=== PATIENT | female | born 1935 | race Caucasian/White ===

== ENCOUNTER 2017-12-03 21:14 | Inpatient (IN) | payer OTHER ==
--- NOTE | 2017-12-03 22:36 | PDOC ---
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 Patient sat up in bed this evening and felt as if the room was spinning. Patient denies any associated chest pain, shortness of breath, palptiations, visual or mental status changes. Patient called for her daughter and daughter called 911 with a concern patient might be having a repeat CVA. Patient's vertigo resolved en route to the hospital and patient now has no active medical complaints. Patient denies fevers/chills, abdominal pain, nausea/vomiting, diarrhea/ constipation, recent travel or sick contacts NKDA Surgical: denies Social: denies nicotine, denies alcohol, denies recreational drugs PMD: Dr. Yuan Past History - Past Medical History Allergies/Adverse Reactions: Allergies Allergy/AdvReac Type Severity Reaction Status Date / Time No Known Allergies Allergy Verified 12/03/17 21:33 Home Medications: Ambulatory Orders Alendronate Na [Fosamax] 70 mg PO Q7D 12/03/17 Amlodipine Besylate 5 mg PO DAILY 12/03/17 Aspirin [ASA -] 81 mg PO DAILY 12/03/17 Atorvastatin Calcium 40 mg PO DAILY 12/03/17 Cetirizine HCl [Zyrtec -] 10 mg PO HS 12/03/17 Citalopram Hydrobromide [Celexa -] 20 mg PO DAILY 12/03/17 Digoxin [Lanoxin -] 0.125 mg PO DAILY 12/03/17 Doxepin HCl [Silenor] 6 mg PO PRN 12/03/17 Ergocalciferol [Drisdol Oral Solution -] 5,000 units PO DAILY 12/03/17 Ferrous Sulfate 325 mg PO DAILY 12/03/17 Gabapentin 300 mg PO BID 12/03/17 Levothyroxine [Synthroid -] 75 mcg PO DAILY 12/03/17 Losartan/Hydrochlorothiazide [Losartan-Hctz 100-25 mg Tab] 1 each PO DAILY 12/03 Magnesium Oxide [Magox 400] 400 mg PO DAILY 12/03/17 Metoprolol Succinate 100 mg PO DAILY 12/03/17 Warfarin Sodium [Coumadin] 0 mg PO ASDIR 12/03/17 Anemia: No Asthma: No Cancer: No Cardiac Disorders: Yes CVA: Yes (01/2015) COPD: No Dementia: No Diabetes: No GI Disorders: No Disorders: No HTN: Yes Hypercholesterolemia: Yes Liver Disease: No Seizures: No Thyroid Disease: Yes - Surgical History Abdominal Surgery: No Appendectomy: No Cardiac Surgery: No Cholecystectomy: No Lung Surgery: No Neurologic Surgery: No Orthopedic Surgery: No - Suicide/Smoking/Psychosocial Hx Smoking History: Never smoked Have you smoked in the past 12 months: No Information on smoking cessation initiated: No Hx Alcohol Use: No Drug/Substance Use Hx: No Substance Use Type: None Hx Substance Use Treatment: No Review of Systems - Review of Systems Constitutional: No: Chills, Fever HEENTM: No: Recent change in vision Respiratory: No: Cough, Shortness of Breath Cardiac (ROS): No: Chest Pain, Lightheadedness, Palpitations, Syncope ABD/GI: No: Constipated, Diarrhea, Nausea, Vomiting : No: Burning, Dysuria *Physical Exam - Vital Signs Last Vital Signs Temp Pulse Resp BP Pulse Ox 97 F L 72 18 171/68 96 12/03/17 21:14 12/03/17 21:14 12/03/17 21:14 12/03/17 21:14 12/03/17 21:14 - Physical Exam Comments: 12/03/17 22:58 GENERAL: Awake, alert, and fully oriented, in no acute distress HEAD: No signs of trauma EYES: PERRLA, EOMI, sclera anicteric, conjunctiva clear ENT: Auricles normal inspection, hearing grossly normal, nares patent, oropharynx clear without exudates. Moist mucosa NECK: Nontender, no stepoffs, Normal ROM, supple, no lymphadenopathy, JVD, or masses LUNGS: Breath sounds equal, clear to auscultation bilaterally. No wheezes, and no crackles HEART: Regular rate and rhythm, normal S1 and S2, no murmurs, rubs or gallops ABDOMEN: Soft, nontender, normoactive bowel sounds. No guarding, no rebound. No masses EXTREMITIES: Normal range of motion, no edema. No clubbing or cyanosis. No cords, erythema, or tenderness NEUROLOGICAL: Slurred speech,Cranial nerves II through XII intact. 5/5 strength and sensation in all extremities, SKIN: Warm, Dry, normal turgor, no rashes or lesions noted. ED Treatment Course - LABORATORY CBC & Chemistry Diagram: 12/04/17 05:00 12/04/17 05:00 Medical Decision Making - Medical Decision Making 12/03/17 23:00 82 year old female presents with acute onset of vertigo. DDx includes CVA/TIA, r/o ACS, Electrolyte derangement, Anemia. Will obtain CT Head + CBC/CMP as well as UA. Reassess. 12/03/17 23:05 EKG shows NSR HR 79, normal intervals, normal axis, no TWI, no KIARA/STD good R wave progression V1-V6. Non-ischemic ECG. 12/03/17 23:36 CBC shows mild leukocytosis (likely reactive). CMP, UA pending. Patient @ CT scan. 12/04/17 00:00 Patient signed out to Dr. Iqbal (Resident) and Dr. Carter (Attending) *DC/Admit/Observation/Transfer Diagnosis at time of Disposition: Dizziness - Discharge Dispostion Condition at time of disposition: Fair Admit: Yes - Referrals - Patient Instructions - Post Discharge Activity
[2017-12-03 23:33] LABS: BASO % 1.1 % (0-2.0); EOS % 4.8 % (0-4.5); HEMATOCRIT 37.3 % (32.4-45.2); HEMOGLOBIN 12.4 GM/dL (10.7-15.3); LYMPH % 19.8 % (8-40); MCH 27.2 pg (25.7-33.7); MCHC 33.2 g/dl (32.0-36.0); MONO % 7.5 % (3.8-10.2); NEUT % 66.8 % (42.8-82.8); PLATELET COUNT 226 K/MM3 (134-434); RBC 4.55 M/mm3 (3.60-5.2); RDW 18.1 % (11.6-15.6)
[2017-12-03 23:36] LABS: URINE APPEARANCE CLEAR; URINE BILIRUBIN NEGATIVE (<2.0 mg/dL); URINE BLOOD 2+ (NEGATIVE); URINE COLOR COLORLESS; URINE GLUCOSE (UA) NEGATIVE (NEGATIVE); URINE KETONE NEGATIVE (NEGATIVE); URINE LEUK ESTERASE NEGATIVE (NEGATIVE); URINE NITRITE NEGATIVE (NEGATIVE); URINE PROTEIN NEGATIVE (NEGATIVE); URINE UROBILINOGEN NEGATIVE mg/dL (0.2-1.0)
[2017-12-03 23:46] LABS: INR 2.3 (0.82-1.09)
[2017-12-03 23:49] LABS: ACTIVATED PTT 44.2 SECONDS (26.9-34.4)
[2017-12-04 00:01] LABS: ALBUMIN 3.3 g/dl (3.4-5.0); ANION GAP 10 (8-16); BILIRUBIN,TOTAL 0.3 mg/dL (0.2-1.0); BLOOD UREA NITROGEN 24 mg/dL (7-18); CALCIUM 9.6 mg/dL (8.5-10.1); CHLORIDE 102 mmol/L (98-107); CO2 31 mmol/L (21-32); GLUCOSE,RANDOM 108 mg/dL (74-106); MAGNESIUM 1.9 mg/dL (1.8-2.4); POTASSIUM 4.1 mmol/L (3.5-5.1); SGPT/ALT 30 U/L (12-78); SODIUM 143 mmol/L (136-145); TOT PROT 6.7 g/dl (6.4-8.2)
[2017-12-04 00:05] LABS: ALK PHOS 199 U/L (45-117); CREATININE 1.1 mg/dL (0.55-1.02); SGOT/AST 23 U/L (15-37)
[2017-12-04 00:13] LABS: N-TERMINAL BNP 535.66 pg/ml (5-450)
--- NOTE | 2017-12-04 00:22 | PDOC ---
Attending Attestation - Medical Decision Making 12/04/17 02:05 Microblog admission sent @2:05am. <Lucien Vann - Last Filed: 12/04/17 02:05> - Resident Resident Name: Erica Berrios - ED Attending Attestation I have performed the following: I have examined & evaluated the patient, The case was reviewed & discussed with the resident, I agree w/resident's findings & plan, Exceptions are as noted - HPI HPI: 12/04/17 00:20 82yo F hx CVA (residual R sided weakness), HTN, HL p/w room spinning dizziness since 9pm that resolved on the way to the ED. Sxs lasted for about 2 hours. Currently denies sxs. Denies associated sxs of cp/sob, fevers, chills, abd pain , LE edema, new weakness/numbness. - Physicial Exam PE: 12/04/17 02:48 agree with resident exam - Medical Decision Making 12/04/17 02:45 82yo F with MMP including CVA presents to the ED with transient vertiginous sxs. Vitals and exam unremarkable. TPA withheld 2/2 NIHSS of 0 in the ED. DDx includes TIA vs CVA vs peripheral vertigo. Labs and CTH unremarkable, will admit patient for CVA workup. Case discussed with nurse practitioner Jolene, patient accepted for admission under Dr. Aguila. Case discussed in detail with admitting physician including history, physical exam and ancillary studies. Admitting physician has assumed care for the patient, will follow all pending diagnostics and will complete the evaluation and treatment. <Eloina Carter - Last Filed: 12/04/17 02:58>
--- NOTE | 2017-12-04 02:13 | PDOC ---
*Physical Exam - Vital Signs Last Vital Signs Temp Pulse Resp BP Pulse Ox 97 F L 72 18 171/68 96 12/03/17 21:14 12/03/17 21:14 12/03/17 21:14 12/03/17 21:14 12/03/17 21:14 ED Treatment Course - LABORATORY CBC & Chemistry Diagram: 12/03/17 23:20 12/03/17 23:20 - ADDITIONAL ORDERS Additional order review: Laboratory Results 12/03/17 12/03/17 12/03/17 23:20 23:20 23:20 PT with INR 26.00 H INR 2.30 H D PTT (Actin FS) 44.2 H Sodium Potassium Chloride Carbon Dioxide Anion Gap BUN Creatinine Creat Clearance w eGFR Random Glucose Calcium Magnesium Total Bilirubin AST ALT Alkaline Phosphatase Creatine Kinase 60 Troponin I < 0.03 B-Natriuretic Peptide 535.66 H Total Protein Albumin Urine Color Urine Appearance Urine pH Ur Specific [place] Urine Protein Urine Glucose (UA) Urine Ketones Urine Blood Urine Nitrite Urine Bilirubin Urine Urobilinogen Ur Leukocyte Esterase Urine WBC (Auto) Urine RBC (Auto) Digoxin Cancelled 1.6320 12/03/17 12/03/17 23:20 23:20 PT with INR INR PTT (Actin FS) Sodium 143 Potassium 4.1 Chloride 102 Carbon Dioxide 31 Anion Gap 10 BUN 24 H Creatinine 1.1 H Creat Clearance w eGFR 47.67 Random Glucose 108 H Calcium 9.6 Magnesium 1.9 Total Bilirubin 0.3 AST 23 ALT 30 Alkaline Phosphatase 199 H Creatine Kinase Troponin I B-Natriuretic Peptide Total Protein 6.7 Albumin 3.3 L Urine Color Colorless Urine Appearance Clear Urine pH 7.0 Ur Specific [place] 1.003 Urine Protein Negative Urine Glucose (UA) Negative Urine Ketones Negative Urine Blood 2+ H Urine Nitrite Negative Urine Bilirubin Negative Urine Urobilinogen Negative Ur Leukocyte Esterase Negative Urine WBC (Auto) <1 Urine RBC (Auto) 4 Digoxin 12/03/17 23:20 RBC 4.55 MCV 82.0 MCHC 33.2 RDW 18.1 H D MPV 10.0 Neutrophils % 66.8 D Lymphocytes % 19.8 D Monocytes % 7.5 Eosinophils % 4.8 H D Basophils % 1.1 Medical Decision Making - Medical Decision Making 12/04/17 02:13 Patient is an 82F with history of CVA (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 Labs reviewed: Laboratory Tests 12/03/17 12/03/17 12/03/17 23:20 23:20 23:20 WBC 12.0 H D Hgb 12.4 Hct 37.3 Plt Count 226 D INR BUN 24 H Creatinine 1.1 H Troponin I B-Natriuretic Peptide Urine WBC (Auto) <1 Urine RBC (Auto) 4 Digoxin 12/03/17 12/03/17 23:20 23:20 WBC Hgb Hct Plt Count INR 2.30 H D BUN Creatinine Troponin I < 0.03 B-Natriuretic Peptide 535.66 H Urine WBC (Auto) Urine RBC (Auto) Digoxin 1.6320 CBC shows small leukocytosis, CMP reassuring. Trop undetectable. BNP slightly elevated. Digoxin level normal. CT negative. Pending CXR. 12/04/17 02:44 Admitted to tele obs via Jolene Lacey *DC/Admit/Observation/Transfer Diagnosis at time of Disposition: Dizziness - Discharge Dispostion Condition at time of disposition: Stable Admit: Yes - Referrals Referrals: Carrie Granger MD [Primary Care Provider] - - Patient Instructions - Post Discharge Activity
--- NOTE | 2017-12-04 04:18 | HP ---
CHIEF COMPLAINT: dizziness PCP: Lissy HISTORY OF PRESENT ILLNESS: This is an 82 year old female with a past medical history significant for CVA, afib, HTN who presented to the ED due to episode of dizziness, room spinning after sitting upright in bed. Upon exam pt states she feels completely back to normal. Niece reports that pt has walked to the bathroom twice without further episodes. She denies chest pain, palpitations or SOB. 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, Atrial fibrillation, HTN, HLD, hypothyroid PAST SURGICAL HISTORY: pt denies Social History: Smoking: pt denies Alcohol: pt denies Drugs: pt denies Family History: mother age 72, stomach CA father in his 70s, lung CA (former smoker) sister in her 70s, Alzheimer's disease sister in her 80s, old age 6 other siblings alive and well no children Allergies No Known Allergies Allergy (Verified 12/03/17 21:33) HOME MEDICATIONS: 3 Medication Instructions Recorded Alendronate Na [Fosamax] 70 mg PO Q7D 12/03/17 Amlodipine Besylate 5 mg PO DAILY 12/03/17 Aspirin [ASA -] 81 mg PO DAILY 12/03/17 Atorvastatin Calcium 40 mg PO DAILY 12/03/17 Cetirizine HCl [Zyrtec -] 10 mg PO HS 12/03/17 Citalopram Hydrobromide [Celexa -] 20 mg PO DAILY 12/03/17 Digoxin [Lanoxin -] 0.125 mg PO DAILY 12/03/17 Doxepin HCl [Silenor] 6 mg PO PRN 12/03/17 Ergocalciferol [Drisdol Oral 5,000 units PO DAILY 12/03/17 Solution -] Ferrous Sulfate 325 mg PO DAILY 12/03/17 Gabapentin 300 mg PO BID 12/03/17 Levothyroxine [Synthroid -] 75 mcg PO DAILY 12/03/17 Losartan/Hydrochlorothiazide 1 each PO DAILY 12/03/17 [Losartan-Hctz 100-25 mg Tab] Magnesium Oxide [Magox 400] 400 mg PO DAILY 12/03/17 Metoprolol Succinate 100 mg PO DAILY 12/03/17 Warfarin Sodium [Coumadin] 0 mg PO ASDIR 12/03/17 REVIEW OF SYSTEMS CONSTITUTIONAL: Absent: fever, chills, diaphoresis, generalized weakness, malaise, loss of appetite, weight change HEENT: Absent: rhinorrhea, nasal congestion, throat pain, throat swelling, difficulty swallowing, mouth swelling, ear pain, eye pain, visual changes CARDIOVASCULAR: Absent: chest pain, syncope, palpitations, irregular heart rate, lightheadedness , peripheral edema RESPIRATORY: Absent: cough, shortness of breath, dyspnea with exertion, orthopnea, wheezing, stridor, hemoptysis GASTROINTESTINAL: Absent: abdominal pain, abdominal distension, nausea, vomiting, diarrhea, constipation, melena, hematochezia GENITOURINARY: Absent: dysuria, frequency, urgency, hesitancy, hematuria, flank pain, genital pain MUSCULOSKELETAL: Absent: myalgia, arthralgia, joint swelling, back pain, neck pain SKIN: Absent: rash, itching, pallor HEMATOLOGIC/IMMUNOLOGIC: Absent: easy bleeding, easy bruising, lymphadenopathy, frequent infections ENDOCRINE: Absent: unexplained weight gain, unexplained weight loss, heat intolerance, cold intolerance NEUROLOGIC: Present: dizziness Absent: headache, focal weakness or paresthesias, unsteady gait, seizure, mental status changes, bladder or bowel incontinence PSYCHIATRIC: Absent: anxiety, depression, suicidal or homicidal ideation, hallucinations. PHYSICAL EXAMINATION Vital Signs - 24 hr 3 12/03/17 12/04/17 21:14 03:55 Temperature 97 F L 97.2 F L Pulse Rate 72 Pulse Rate [ 70 Apical] Respiratory 18 18 Rate Blood Pressure 171/68 Blood Pressure 134/66 [Arm] O2 Sat by Pulse 96 Oximetry (%) GENERAL: Awake, alert, and fully oriented, in no acute distress. HEAD: Normal with no signs of trauma. EYES: Pupils equal, round and reactive to light, extraocular movements intact, sclera anicteric, conjunctiva clear. No lid lag. EARS, NOSE, THROAT: Ears normal, nares patent, oropharynx clear without exudates. Moist mucous membranes. NECK: Normal range of motion, supple without lymphadenopathy, JVD, or masses. LUNGS: Breath sounds equal, clear to auscultation bilaterally. No wheezes, and no crackles. No accessory muscle use. HEART: Regular rate and rhythm, normal S1 and S2 without murmur, rub or gallop. ABDOMEN: Soft, nontender, not distended, normoactive bowel sounds, no guarding, no rebound, no masses. No hepatomegaly or splenomegaly. MUSCULOSKELETAL: Normal range of motion at all joints. No bony deformities or tenderness. No CVA tenderness. UPPER EXTREMITIES: 2+ pulses, warm, well-perfused. No cyanosis. No clubbing. No peripheral edema. LOWER EXTREMITIES: 2+ pulses, warm, well-perfused. No calf tenderness. No peripheral edema. NEUROLOGICAL: Cranial nerves II-XII intact. Normal speech. Normal gait. PSYCHIATRIC: Cooperative. Good eye contact. Appropriate mood and affect. SKIN: Warm, dry, normal turgor, no rashes or lesions noted, normal capillary refill. Laboratory Results - last 24 hr 3 12/03/17 12/03/17 12/03/17 23:20 23:20 23:20 WBC 12.0 H D RBC 4.55 Hgb 12.4 Hct 37.3 MCV 82.0 MCH 27.2 MCHC 33.2 RDW 18.1 H D Plt Count 226 D MPV 10.0 Neutrophils % 66.8 D Lymphocytes % 19.8 D Monocytes % 7.5 Eosinophils % 4.8 H D Basophils % 1.1 PT with INR INR PTT (Actin FS) Sodium 143 Potassium 4.1 Chloride 102 Carbon Dioxide 31 Anion Gap 10 BUN 24 H Creatinine 1.1 H Creat Clearance w eGFR 47.67 Random Glucose 108 H Calcium 9.6 Magnesium 1.9 Total Bilirubin 0.3 AST 23 ALT 30 Alkaline Phosphatase 199 H Creatine Kinase Troponin I B-Natriuretic Peptide Total Protein 6.7 Albumin 3.3 L Urine Color Colorless Urine Appearance Clear Urine pH 7.0 Ur Specific [place] 1.003 Urine Protein Negative Urine Glucose (UA) Negative Urine Ketones Negative Urine Blood 2+ H Urine Nitrite Negative Urine Bilirubin Negative Urine Urobilinogen Negative Ur Leukocyte Esterase Negative Urine WBC (Auto) <1 Urine RBC (Auto) 4 Digoxin 3 12/03/17 12/03/17 12/03/17 23:20 23:20 23:20 WBC RBC Hgb Hct MCV MCH MCHC RDW Plt Count MPV Neutrophils % Lymphocytes % Monocytes % Eosinophils % Basophils % PT with INR 26.00 H INR 2.30 H D PTT (Actin FS) 44.2 H Sodium Potassium Chloride Carbon Dioxide Anion Gap BUN Creatinine Creat Clearance w eGFR Random Glucose Calcium Magnesium Total Bilirubin AST ALT Alkaline Phosphatase Creatine Kinase 60 Troponin I < 0.03 B-Natriuretic Peptide 535.66 H Total Protein Albumin Urine Color Urine Appearance Urine pH Ur Specific [place] Urine Protein Urine Glucose (UA) Urine Ketones Urine Blood Urine Nitrite Urine Bilirubin Urine Urobilinogen Ur Leukocyte Esterase Urine WBC (Auto) Urine RBC (Auto) Digoxin 1.6320 Cancelled EKG shows NSR HR 79, normal intervals, normal axis, no TWI, no KIARA/STD good R wave progression V1-V6. Non-ischemic ECG. CT head noncontrast: THIS IS A PRELIMINARY REPORT FROM [facility] No acute brain parenchymal abnormality. No hemorrhage, mass or acute territorial infarct. Chronic infarct left parietal lobe. Atrophy and chronic small vessel ischemic changes. Clear visualized paranasal sinuses. Visualized mastoid air cells clear. THIS DOCUMENT HAS BEEN ELECTRONICALLY SIGNED Jeni Broussard M.D. 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 dizziness r/o TIA, cardiac event - spontaneously resolved - monitor on tele - trend troponin - CT head with no acute findings on prelim read, f/u final read leukocytosis - pt afebrile, u/a neg, no s/s acute infection - monitor for now, repeat in am HTN - cont home meds: norvasc, toprol; hyzaar to be changed to formulary components Afib - rate controlled, cont toprol - INR therapeutic. Pt and daughter unsure of coumadin dose. Med list has warfarin on it twice: 2mg daily and 1.5 mg daily. PCP to clarify in am HLD - cont home lipitor hypothyroidism - cont home synthroid dose - tsh in am DVT PPX - heparin deferred, anticipated LOS less than 48h FEN - tolerating po - bmp in am - low sodium diet as tolerated Dispo: pt admitted for further observation. Visit type - Emergency Visit Emergency Visit: Yes ED Registration Date: 12/03/17 Care time: The patient presented to the Emergency Department on the above date and was hospitalized for further evaluation of their emergent condition. - New Patient This patient is new to me today: Yes Date on this admission: 12/04/17 - Critical Care Critical Care patient: No Hospitalist Screening - Colonoscopy Questionnaire Colonoscopy Questionnaire: Colonoscopy Questionnaire - Patient: 50 - 75 years old and never had a screening colonoscopy: No History of colon or rectal polyps, or CA: No History of IBD, Crohn's disease or UC: No History of abdominal radiation therapy as a child: No - Relative: 1 with colon or rectal CA, or polyps at age 60 or younger: No Colon or rectal CA diagnosed at age 45 or younger: No Multiple relatives with colon or rectal CA: No - Outcome: Screening Result: Negative Screen
[2017-12-04] MEDS ORDERED: PATIENT'S OWN MEDICATION (NON-FORMULARY) (Alendronate Na [Fosamax (Weekly)] 70 MG) PO SCH (04:30)
[2017-12-04 04:46] VITALS: BMI 22.0
[2017-12-04] MEDS ORDERED: LEVOTHYROXINE NA 75 MCG TABLET (FP) PO SCH (07:00)
[2017-12-04 07:14] LABS: EOS % 4.3 % (0-4.5); MCH 27.7 pg (25.7-33.7); MCHC 34.3 g/dl (32.0-36.0); MEAN CELL VOLUME 80.8 fl (80-96); MEAN PLT VOLUME 10.2 fl (7.5-11.1); MONO % 7.4 % (3.8-10.2); NEUT % 61.3 % (42.8-82.8); PLATELET COUNT 220 K/MM3 (134-434); RBC 4.32 M/mm3 (3.60-5.2); RDW 17.8 % (11.6-15.6); WHITE BLOOD COUNT 12.2 K/mm3 (4.0-10.0)
[2017-12-04 08:04] LABS: CHLORIDE 105 mmol/L (98-107); SODIUM 142 mmol/L (136-145)
[2017-12-04 08:49] LABS: ANION GAP 6 (8-16); BLOOD UREA NITROGEN 21 mg/dL (7-18); CALCIUM 9.1 mg/dL (8.5-10.1); CO2 31 mmol/L (21-32); GLUCOSE,RANDOM 87 mg/dL (74-106); PHOSPHOROUS 3.4 mg/dL (2.5-4.9)
[2017-12-04] MEDS: HYDROCHLOROTHIAZIDE 25 MG TABLET (FP) PO SCH (09:13)
[2017-12-04] MEDS: FERROUS SO4 325 MG TABLET (FP) PO SCH (09:14)
[2017-12-04] MEDS: amLODIPine BESYLATE 5 MG TABLET (FP) PO SCH (09:14)
[2017-12-04] MEDS: DIGOXIN 0.125 MG TABLET (FP) PO SCH (09:14)
[2017-12-04] MEDS: ASPIRIN 81 MG CHEWABLE TABLETS PO SCH (09:15)
[2017-12-04] MEDS: CITALOPRAM HYDROBROMIDE 20 MG TABLET (FP) PO SCH (09:15)
[2017-12-04] MEDS: LOSARTAN POTASSIUM 50 MG TABLET (FP) PO SCH (09:15)
[2017-12-04] MEDS: GABAPENTIN 300 MG CAPSULE (FP) PO SCH ×2 (09:15→22:06)
[2017-12-04] MEDS: MAGNESIUM OXIDE 400 MG TABLET (FP) PO SCH (09:15)
[2017-12-04] MEDS ORDERED: PATIENT'S OWN MEDICATION (NON-FORMULARY) (Losartan/Hydrochlorothiazide [Losartan-Hctz 100- PO SCH (10:00)
[2017-12-04] MEDS ORDERED: ERGOCALCIFEROL (VITAMIN D2) 50,000 UNIT CAPSULE (FP) PO SCH (10:00)
--- NOTE | 2017-12-04 11:33 | EKG ---
Test Reason : Blood Pressure : / mmHG Vent. Rate : 081 BPM Atrial Rate : 081 BPM P-R Int : 154 ms QRS Dur : 082 ms QT Int : 352 ms P-R-T Axes : 072 006 031 degrees QTc Int : 408 ms POOR DATA QUALITY, INTERPRETATION MAY BE ADVERSELY AFFECTED NORMAL SINUS RHYTHM NONSPECIFIC ST AND T WAVE ABNORMALITY ABNORMAL ECG WHEN COMPARED WITH ECG OF 04-APR-2016 18:36, NONSPECIFIC T WAVE ABNORMALITY HAS REPLACED INVERTED T WAVES IN INFERIOR LEADS NONSPECIFIC T WAVE ABNORMALITY, IMPROVED IN LATERAL LEADS Confirmed by YAZ SLAUGHTER, LORRIE ([id number]) on 12/04/2017 11:33:26 AM Referred By: Confirmed By:LORRIE MUKHERJEE MD
--- NOTE | 2017-12-04 14:26 | PN ---
Progress Note, Physician Chief Complaint: PATIENT SEEN AND EXAMINED MET WITH DAUGHTER EXPLAINS MOM HAS BEEN CONFUSED AND DIZZY NO FALLS - Current Medication List Current Medications: Active Medications Amlodipine Besylate (Norvasc -) 5 mg PO DAILY [facility] Last Admin: 12/04/17 09:14 Dose: 5 mg Aspirin (Asa -) 81 mg PO DAILY [facility] Last Admin: 12/04/17 09:15 Dose: 81 mg Atorvastatin Calcium (Lipitor -) 40 mg PO [facility] Citalopram Hydrobromide (Celexa -) 20 mg PO DAILY [facility] Last Admin: 12/04/17 09:15 Dose: 20 mg Digoxin (Lanoxin -) 0.125 mg PO DAILY [facility] Last Admin: 12/04/17 09:14 Dose: 0.125 mg Ergocalciferol (Drisdol -) 50,000 unit PO Sa@1000 [facility] Last Admin: 12/04/17 09:31 Dose: 50,000 unit Ferrous Sulfate (Feosol -) 325 mg PO DAILY [facility] Last Admin: 12/04/17 09:14 Dose: 325 mg Gabapentin (Neurontin -) 300 mg PO BID [facility] Last Admin: 12/04/17 09:15 Dose: 300 mg Hydrochlorothiazide (Hctz -) 25 mg PO DAILY [facility] Last Admin: 12/04/17 09:13 Dose: 25 mg Levothyroxine Sodium (Synthroid -) 75 mcg PO DAILY@0700 [facility] Last Admin: 12/04/17 06:43 Dose: 75 mcg Loratadine (Claritin -) 10 mg PO [facility] Losartan Potassium (Cozaar -) 100 mg PO DAILY [facility] Last Admin: 12/04/17 09:15 Dose: 100 mg Magnesium Oxide (Mag-Ox -) 400 mg PO DAILY [facility] Last Admin: 12/04/17 09:15 Dose: 400 mg Metoprolol Succinate (Toprol Xl -) 100 mg PO DAILY [facility] Last Admin: 12/04/17 09:15 Dose: 100 mg - Objective Vital Signs: Vital Signs Temperature 98 F 12/04/17 10:00 Pulse Rate 68 12/04/17 10:00 Respiratory Rate 18 12/04/17 10:00 Blood Pressure 163/68 12/04/17 10:00 O2 Sat by Pulse Oximetry (%) 96 12/04/17 04:28 Constitutional: Yes: Mild Distress Eyes: Yes: WNL HENT: Yes: WNL Neck: Yes: WNL Cardiovascular: Yes: WNL Respiratory: Yes: WNL Gastrointestinal: Yes: WNL Genitourinary: Yes: Incontinence Musculoskeletal: Yes: Muscle Weakness Edema: No Peripheral Pulses WNL: Yes Integumentary: Yes: WNL Wound/Incision: Yes: Clean/Dry Neurological: Yes: Confusion, Unsteady Gait ...Motor Strength: LLE, RLE Psychiatric: Yes: Other Labs: CBC, BMP 12/04/17 05:00 12/04/17 05:00 INR, PTT INR 2.30 (0.82-1.09) H D 12/03/17 23:20 Problem List - Problems (1) Dementia Code(s): F03.90 - UNSPECIFIED DEMENTIA WITHOUT BEHAVIORAL DISTURBANCE (2) CVA (cerebral vascular accident) Assessment/Plan: OLD CVA Code(s): I63.9 - CEREBRAL INFARCTION, UNSPECIFIED (3) Dizziness Code(s): R42 - DIZZINESS AND GIDDINESS (4) Fever Code(s): R50.9 - FEVER, UNSPECIFIED Qualifiers: Fever type: unspecified Qualified Code(s): R50.9 - Fever, unspecified (5) Hypertension Code(s): I10 - ESSENTIAL (PRIMARY) HYPERTENSION Assessment/Plan NEUROLOGY AND CARDIOLOGY WORKUP DECREASE SYNTHROID TSH LOW PT EVAL FALL RISKS OOB TO CHAIR CAROTID/ECHO UA
--- NOTE | 2017-12-04 15:58 | CONSULT ---
Consult - text type - Consultation Consultation Note: NEUROLOGY CONSULTATION is greatly appreciated: Events reviewed and discussed with Dr. Escamilla and family at the bedside. Her niece aides with history. This 82 yo RH woman lives alone with home health aide 9-5 x 7 days. When aide leaves, patient goes to sleep in niece's apartment in the same structure. PMH sig for HTN, Hypothyroidism, OP, Chol, depression and ASHD with AFib. S/P Left CVA 3 years ago with residual aphasia and right hemiparesis. Maintained on coumadin, metoprolol, losartan, HCTZ, L-thyroxine, fosamax, amlodipine, aatorvastatin, citaloparm, digoxin, doxepin and gabapentin. Admitted early this AM after sitting up in her bed and developing a spinning vertigo that waxed and waned over 1 hr. No nausea. EMS found BP "elevated" as per family. Dizziness now resolved. No prior episodes. Walks at home, independently with walker or cane. CT of head (reviewed): Mod atrophy with high left parietal encephalomalacia c/w old CVA (distal MCA territory-appears possibly embolic). INR= 2.3. Dig level=1.632. WBC= 12k Exam: no bruits, no head trauma. Cor irreg. BP's in 150-160/60-70 Range. NEURO: Awake, alert, cooperative. Follow most simple commands with some perseveration. Sparse output in Swedish -Glabellar, -snout CN: Right inferior temporal quadrantopsia. No facial. Gag good Motor: Min. Tremor. Slight reduced SD's right. Grasps normal. Right foot rests externally rotated. Brisk reflexes. Right Babinski. Coord: No obvious FTN dystaxia Sensory: Normal Gait: Wide-based (with assistance). Mild right circumduction IMP: Old left CVA (probably embolic) with aphasia, field cut and mild right hemiparesis. Positional vertigo (Labyrinthine) more likely than presyncope SUGGEST: Continue coumadin to INR 2-2.5 Check orthostatic BP's. D/C gabapentin. ENT/Neuro f/u's as outpatient. Follow WBC. R/o occult infection. Thank you very much, Juanito Gilliam MD
[2017-12-04] MEDS ORDERED: LEVOTHYROXINE NA 50 MCG TABLET (FP) PO SCH (18:21)
--- NOTE | 2017-12-04 19:08 | CON.CARD ---
Consult Consult Specialty:: Cardiology Referred by:: Dr. Escamilla Reason for Consultation:: Dizziness/vertigo - History of Present Illness Chief Complaint: Dizziness. 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 The patient developed spinning vertigo that waxed and waned over one hour. Her symptom resolved spontaneously. She denies syncope, near syncope, chest pain, SOB or palpitation. No edema, orthopnea or PND. She has limited exercise tolerance due to right hemiparesis. She can walk slowly with walker. ECG shows sinus rhythm. Telemetry reveals sinus rhythm without recurrent atrial fibrillation. Patient has been stable without recurrent vertigo since admission. CT head unremarkable. Seen by Dr. Gilliam for neurology evaluation. 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 Cardio/Vascular: Yes: AFIB, HTN ...: No - Alcohol/Substance Use Hx Alcohol Use: No - Smoking History Smoking history: Never smoked Have you smoked in the past 12 months: No Home Medications - Allergies Allergies/Adverse Reactions: Allergies Allergy/AdvReac Type Severity Reaction Status Date / Time No Known Allergies Allergy Verified 12/03/17 21:33 - Home Medications Home Medications: Ambulatory Orders Alendronate Na [Fosamax] 70 mg PO Q7D 12/03/17 Amlodipine Besylate 5 mg PO DAILY 12/03/17 Aspirin [ASA -] 81 mg PO DAILY 12/03/17 Atorvastatin Calcium 40 mg PO DAILY 12/03/17 Cetirizine HCl [Zyrtec -] 10 mg PO HS 12/03/17 Citalopram Hydrobromide [Celexa -] 20 mg PO DAILY 12/03/17 Digoxin [Lanoxin -] 0.125 mg PO DAILY 12/03/17 Doxepin HCl [Silenor] 6 mg PO PRN 12/03/17 Ergocalciferol [Drisdol Oral Solution -] 5,000 units PO DAILY 12/03/17 Ferrous Sulfate 325 mg PO DAILY 12/03/17 Gabapentin 300 mg PO BID 12/03/17 Levothyroxine [Synthroid -] 75 mcg PO DAILY 12/03/17 Losartan/Hydrochlorothiazide [Losartan-Hctz 100-25 mg Tab] 1 each PO DAILY 12/03 Magnesium Oxide [Magox 400] 400 mg PO DAILY 12/03/17 Metoprolol Succinate 100 mg PO DAILY 12/03/17 Warfarin Sodium [Coumadin] 0 mg PO ASDIR 12/03/17 Review of Systems - Review of Systems Constitutional: reports: Weakness Neck: reports: No Symptoms Cardiovascular: reports: No Symptoms Respiratory: reports: No Symptoms Gastrointestinal: reports: No Symptoms Genitourinary: reports: No Symptoms Neurological: reports: Dizziness Vital Signs: Vital Signs Temperature 98.6 F 12/04/17 18:00 Pulse Rate 59 L 12/04/17 18:00 Respiratory Rate 18 12/04/17 18:00 Blood Pressure 136/56 12/04/17 18:00 O2 Sat by Pulse Oximetry (%) 96 12/04/17 04:28 General: Well developed. Well nourished. No acute distress. Head: Normocephalic. Atraumatic, Eyes: PERRLA, EOMI. Sclerae anicteric. Conjunctivae clear. Neck: Supple. No JVD. No bruits. Heart: Normal S1, S2: Regular rhythm and rate. No murmur. No gallop or rub. Lungs: Symmetrical air entry. Clear to auscultation. No crackle. No wheezing or rhonchi. Abdomen: Soft. Bowel sound positive. Non tender. No masses. Extremities: No edema. No clubbing or cyanosis. - Other Data Labs, Other Data: CBC, BMP 12/04/17 05:00 12/04/17 05:00 INR, PTT INR 2.30 (0.82-1.09) H D 12/03/17 23:20 Troponin, BNP 12/03/17 12/04/17 12/04/17 23:20 05:00 11:35 Troponin I < 0.03 < 0.02 < 0.02 B-Natriuretic Peptide 535.66 H Troponin, BNP 12/03/17 12/04/17 12/04/17 23:20 05:00 11:35 Troponin I < 0.03 < 0.02 < 0.02 B-Natriuretic Peptide 535.66 H Imaging - Results EKG: Image Reviewed (Sinus rhythm. Normal axis. Normal ST-T. 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 ECG shows sinus rhythm. Telemetry reveals sinus rhythm without recurrent atrial fibrillation. Patient has been stable without recurrent vertigo since admission. CT head unremarkable. Seen by Dr. Gilliam for neurology evaluation. 1) Vertigo. No syncope or near syncope. Non-cardiac origin. 2) Paroxysmal atrial fibrillation. Remains in sinus without recurrent atrial fibrillation. Continue metoprolol, digoxin and warfarin. No cardiac indication to continue aspirin. Please call us for reconsult as needed.
[2017-12-04] MEDS: ATORVASTATIN CA 40 MG TABLET (FP) PO SCH (22:06)
[2017-12-04] MEDS: LORATADINE 10 MG TABLET PO SCH (22:06)
[2017-12-05] MEDS: LEVOTHYROXINE NA 50 MCG TABLET (FP) PO SCH (06:58)
[2017-12-05] MEDS: LOSARTAN POTASSIUM 50 MG TABLET (FP) PO SCH (09:11)
[2017-12-05] MEDS: CITALOPRAM HYDROBROMIDE 20 MG TABLET (FP) PO SCH (09:11)
[2017-12-05] MEDS: GABAPENTIN 300 MG CAPSULE (FP) PO SCH ×2 (09:12→21:02)
[2017-12-05] MEDS: FERROUS SO4 325 MG TABLET (FP) PO SCH (09:12)
[2017-12-05] MEDS: DIGOXIN 0.125 MG TABLET (FP) PO SCH (09:12)
[2017-12-05] MEDS: ASPIRIN 81 MG CHEWABLE TABLETS PO SCH (09:12)
[2017-12-05] MEDS: MAGNESIUM OXIDE 400 MG TABLET (FP) PO SCH (09:12)
[2017-12-05] MEDS: amLODIPine BESYLATE 5 MG TABLET (FP) PO SCH (09:12)
[2017-12-05] MEDS: HYDROCHLOROTHIAZIDE 25 MG TABLET (FP) PO SCH (09:12)
--- NOTE | 2017-12-05 19:42 | PN ---
Physical Exam: SUBJECTIVE: Patient seen and examined. She is confused. She denies CP, SOB, palpitations, dizziness. OBJECTIVE: Vital Signs Period Temp Pulse Resp BP Sys/Carter Pulse Ox Last 24 Hr 97 F-98.6 F 59-70 18-20 119-147/59-72 93-96 GENERAL: The patient is awake, alert, and fully oriented, in no acute distress. HEAD: Normal with no signs of trauma. EYES: PERRL, extraocular movements intact, sclera anicteric, conjunctiva clear. No ptosis. ENT: Ears normal, nares patent, oropharynx clear without exudates, moist mucous membranes. NECK: Trachea midline, full range of motion, supple. LUNGS: Breath sounds equal, clear to auscultation bilaterally, no wheezes, no crackles, no accessory muscle use. HEART: Regular rate and rhythm, S1, S2 without murmur, rub or gallop. ABDOMEN: Soft, nontender, nondistended, normoactive bowel sounds, no guarding, no rebound, no hepatosplenomegaly, no masses. EXTREMITIES: 2+ pulses, warm, well-perfused, no edema. NEUROLOGICAL: Cranial nerves II through XII grossly intact. Normal speech, gait not observed. PSYCH: Normal mood, normal affect. SKIN: Warm, dry, normal turgor, no rashes or lesions noted Active Medications Generic Name Dose Route Start Last Admin Trade Name Freq PRN Reason Stop Dose Admin Amlodipine Besylate 5 mg 12/04/17 10:00 12/05/17 09:12 Norvasc - PO 5 mg DAILY DORA Administration Aspirin 81 mg 12/04/17 10:12/05/17 09:12 Asa - PO 81 mg DAILY DORA Administration Atorvastatin Calcium 40 mg 12/04/17 22:00 12/04/17 22:06 Lipitor - PO 40 mg HS DORA Administration Citalopram Hydrobromide 20 mg 12/04/17 10:00 12/05/17 09:11 Celexa - PO 20 mg DAILY DORA Administration Digoxin 0.125 mg 12/04/17 10:00 12/05/17 09:12 Lanoxin - PO 0.125 mg DAILY DORA Administration Ergocalciferol 50,000 unit 12/04/17 10:00 12/04/17 09:31 Drisdol - PO 50,000 unit Sa@1000 DORA Administration Ferrous Sulfate 325 mg 12/04/17 10:00 12/05/17 09:12 Feosol - PO 325 mg DAILY DORA Administration Gabapentin 300 mg 12/04/17 10:00 12/05/17 09:12 Neurontin - PO 300 mg BID DORA Administration Hydrochlorothiazide 25 mg 12/04/17 10:00 12/05/17 09:12 Hctz - PO 25 mg DAILY DORA Administration Levothyroxine Sodium 50 mcg 12/05/17 07:00 12/05/17 06:58 Synthroid - PO 50 mcg DAILY@0700 DORA Administration Loratadine 10 mg 12/04/17 22:00 12/04/17 22:06 Claritin - PO 10 mg HS DORA Administration Losartan Potassium 100 mg 12/04/17 10:00 12/05/17 09:11 Cozaar - PO 100 mg DAILY DORA Administration Magnesium Oxide 400 mg 12/04/17 10:00 12/05/17 09:12 Mag-Ox - PO 400 mg DAILY DORA Administration Metoprolol Succinate 100 mg 12/04/17 10:00 12/05/17 09:12 Toprol Xl - PO 100 mg DAILY DORA Administration ASSESSMENT/PLAN:
[2017-12-05] MEDS ORDERED: ALBUTEROL SO4 0.083% IH SOL 2.5 MG/3 ML VIAL.NEB. NEB PRN (20:16)
[2017-12-05] MEDS: ATORVASTATIN CA 40 MG TABLET (FP) PO SCH (21:02)
[2017-12-05] MEDS: LORATADINE 10 MG TABLET PO SCH (21:02)
[2017-12-06] MEDS: LEVOTHYROXINE NA 50 MCG TABLET (FP) PO SCH (06:02)
[2017-12-06 06:29] LABS: BASO % 0.9 % (0-2.0); HEMATOCRIT 36.5 % (32.4-45.2); HEMOGLOBIN 12.3 GM/dL (10.7-15.3); LYMPH % 25.2 % (8-40); MCH 27.7 pg (25.7-33.7); MCHC 33.7 g/dl (32.0-36.0); MEAN CELL VOLUME 82.2 fl (80-96); MEAN PLT VOLUME 10.1 fl (7.5-11.1); MONO % 7.1 % (3.8-10.2); NEUT % 62.8 % (42.8-82.8); PLATELET COUNT 234 K/MM3 (134-434); RBC 4.44 M/mm3 (3.60-5.2); WHITE BLOOD COUNT 12.3 K/mm3 (4.0-10.0)
[2017-12-06 06:43] LABS: INR 1.66 (0.82-1.09); PROTHROMBIN TIME (PATIENT) 18.8 SEC (9.98-11.88)
[2017-12-06 06:55] LABS: ANION GAP 9 (8-16); BLOOD UREA NITROGEN 27 mg/dL (7-18); CALCIUM 9.1 mg/dL (8.5-10.1); CHLORIDE 102 mmol/L (98-107); CO2 32 mmol/L (21-32); GLUCOSE,RANDOM 88 mg/dL (74-106); SODIUM 143 mmol/L (136-145)
[2017-12-06 06:58] LABS: CREATININE 1.2 mg/dL (0.55-1.02)
[2017-12-06] MEDS: HYDROCHLOROTHIAZIDE 25 MG TABLET (FP) PO SCH (09:05)
[2017-12-06] MEDS: LOSARTAN POTASSIUM 50 MG TABLET (FP) PO SCH (09:06)
[2017-12-06] MEDS: CITALOPRAM HYDROBROMIDE 20 MG TABLET (FP) PO SCH (09:08)
[2017-12-06] MEDS: DIGOXIN 0.125 MG TABLET (FP) PO SCH (09:08)
[2017-12-06] MEDS: FERROUS SO4 325 MG TABLET (FP) PO SCH (09:08)
[2017-12-06] MEDS: ASPIRIN 81 MG CHEWABLE TABLETS PO SCH (09:08)
[2017-12-06] MEDS: GABAPENTIN 300 MG CAPSULE (FP) PO SCH ×2 (09:08→21:30)
[2017-12-06] MEDS: MAGNESIUM OXIDE 400 MG TABLET (FP) PO SCH (09:09)
[2017-12-06] MEDS: amLODIPine BESYLATE 5 MG TABLET (FP) PO SCH (09:10)
[2017-12-06] MEDS ORDERED: TIOTROPIUM BROMIDE 18 MCG CAPSULES IH SCH (10:00)
[2017-12-06] MEDS: ATORVASTATIN CA 40 MG TABLET (FP) PO SCH (21:30)
[2017-12-06] MEDS: LORATADINE 10 MG TABLET PO SCH (21:30)
[2017-12-07] MEDS: LEVOTHYROXINE NA 50 MCG TABLET (FP) PO SCH (06:05)
[2017-12-07] MEDS: ASPIRIN 81 MG CHEWABLE TABLETS PO SCH (10:06)
[2017-12-07] MEDS: LOSARTAN POTASSIUM 50 MG TABLET (FP) PO SCH (10:06)
[2017-12-07] MEDS: FERROUS SO4 325 MG TABLET (FP) PO SCH (10:06)
[2017-12-07] MEDS: GABAPENTIN 300 MG CAPSULE (FP) PO SCH ×2 (10:06→21:11)
[2017-12-07] MEDS: HYDROCHLOROTHIAZIDE 25 MG TABLET (FP) PO SCH (10:07)
[2017-12-07] MEDS: amLODIPine BESYLATE 5 MG TABLET (FP) PO SCH (10:07)
[2017-12-07] MEDS: DIGOXIN 0.125 MG TABLET (FP) PO SCH (10:07)
[2017-12-07] MEDS: MAGNESIUM OXIDE 400 MG TABLET (FP) PO SCH (10:07)
[2017-12-07] MEDS: CITALOPRAM HYDROBROMIDE 20 MG TABLET (FP) PO SCH (10:07)
[2017-12-07 10:33] LABS: INR 1.36 (0.82-1.09); PROTHROMBIN TIME (PATIENT) 15.4 SEC (9.98-11.88)
[2017-12-07] MEDS ORDERED: ENOXAPARIN NA (PORCINE) 60 MG/0.6 ML DISP.SYRIN SQ ONE ×3 (11:15→22:00)
--- NOTE | 2017-12-07 15:02 | PN ---
Progress Note, Physician Chief Complaint: AWAKE ALERT NO APPARENT DISTRESS - Current Medication List Current Medications: Active Medications Amlodipine Besylate (Norvasc -) 5 mg PO DAILY [facility] Last Admin: 12/07/17 10:07 Dose: 5 mg Aspirin (Asa -) 81 mg PO DAILY [facility] Last Admin: 12/07/17 10:06 Dose: 81 mg Atorvastatin Calcium (Lipitor -) 40 mg PO [facility] Last Admin: 12/06/17 21:30 Dose: 40 mg Citalopram Hydrobromide (Celexa -) 20 mg PO DAILY [facility] Last Admin: 12/07/17 10:07 Dose: 20 mg Digoxin (Lanoxin -) 0.125 mg PO DAILY [facility] Last Admin: 12/07/17 10:07 Dose: 0.125 mg Enoxaparin Sodium (Lovenox -) 50 mg SQ ONCE ONE Stop: 12/07/17 22:01 Ergocalciferol (Drisdol -) 50,000 unit PO Sa@1000 [facility] Last Admin: 12/04/17 09:31 Dose: 50,000 unit Ferrous Sulfate (Feosol -) 325 mg PO DAILY [facility] Last Admin: 12/07/17 10:06 Dose: 325 mg Gabapentin (Neurontin -) 300 mg PO BID [facility] Last Admin: 12/07/17 10:06 Dose: 300 mg Hydrochlorothiazide (Hctz -) 25 mg PO DAILY [facility] Last Admin: 12/07/17 10:07 Dose: 25 mg Levothyroxine Sodium (Synthroid -) 50 mcg PO DAILY@0700 [facility] Last Admin: 12/07/17 06:05 Dose: 50 mcg Loratadine (Claritin -) 10 mg PO HS [facility] Last Admin: 12/06/17 21:30 Dose: 10 mg Losartan Potassium (Cozaar -) 100 mg PO DAILY [facility] Last Admin: 12/07/17 10:06 Dose: 100 mg Magnesium Oxide (Mag-Ox -) 400 mg PO DAILY [facility] Last Admin: 12/07/17 10:07 Dose: 400 mg Metoprolol Succinate (Toprol Xl -) 100 mg PO DAILY [facility] Last Admin: 12/07/17 10:07 Dose: 100 mg Warfarin Sodium 2.5 mg/ (Warfarin Sodium 1 mg) 3.5 mg PO DAILY@1800 [facility] - Objective Vital Signs: Vital Signs Temperature 97.7 F 12/07/17 09:00 Pulse Rate 65 12/07/17 10:07 Respiratory Rate 18 12/07/17 09:00 Blood Pressure 136/63 12/07/17 09:00 O2 Sat by Pulse Oximetry (%) 95 12/07/17 09:00 Constitutional: Yes: No Distress Eyes: Yes: WNL HENT: Yes: WNL Neck: Yes: WNL Cardiovascular: Yes: Pulse Irregular Respiratory: Yes: WNL Gastrointestinal: Yes: WNL, Distention Musculoskeletal: Yes: WNL Extremities: Yes: WNL Edema: No Peripheral Pulses WNL: Yes Integumentary: Yes: WNL Wound/Incision: Yes: Clean/Dry Neurological: Yes: Pre-Existing Deficit ...Motor Strength: LLE, RLE Psychiatric: Yes: Other Labs: CBC, BMP 12/06/17 06:00 12/06/17 06:00 INR, PTT INR 1.36 (0.82-1.09) H 12/07/17 10:05 Problem List - Problems (1) Dementia Code(s): F03.90 - UNSPECIFIED DEMENTIA WITHOUT BEHAVIORAL DISTURBANCE (2) CVA (cerebral vascular accident) Code(s): I63.9 - CEREBRAL INFARCTION, UNSPECIFIED (3) Dizziness Code(s): R42 - DIZZINESS AND GIDDINESS (4) Fever Code(s): R50.9 - FEVER, UNSPECIFIED Qualifiers: Fever type: unspecified Qualified Code(s): R50.9 - Fever, unspecified (5) Hypertension Code(s): I10 - ESSENTIAL (PRIMARY) HYPERTENSION Assessment/Plan INR SUBTHERAPEUTIC LOVENOX STARTED BASED ON CREATANINE CLEARANCE OF <30 AT 50MG SQ DAILY COUMADIN 5MG TONIGHT CHECK INR IN MORNING PT EVAL HOME WITH [facility]
[2017-12-07] MEDS ORDERED: WARFARIN NA 5 MG TABLET (UD) PO SCH (18:00)
[2017-12-07] MEDS ORDERED: WARFARIN NA 2.5 MG TABLET (FP) PO SCH (18:00)
[2017-12-07] MEDS ORDERED: WARFARIN NA 2.5 MG, WARFARIN NA 1 MG PO SCH (18:00)
[2017-12-07] MEDS: ATORVASTATIN CA 40 MG TABLET (FP) PO SCH (21:11)
[2017-12-07] MEDS: LORATADINE 10 MG TABLET PO SCH (21:11)
[2017-12-08] MEDS: LEVOTHYROXINE NA 50 MCG TABLET (FP) PO SCH (06:16)
[2017-12-08 06:29] LABS: HEMATOCRIT 36.5 % (32.4-45.2); HEMOGLOBIN 12.4 GM/dL (10.7-15.3); MCH 28.1 pg (25.7-33.7); MCHC 33.9 g/dl (32.0-36.0); MEAN CELL VOLUME 82.7 fl (80-96); MEAN PLT VOLUME 10.3 fl (7.5-11.1); PLATELET COUNT 234 K/MM3 (134-434); RBC 4.41 M/mm3 (3.60-5.2); RDW 17.6 % (11.6-15.6); WHITE BLOOD COUNT 11.4 K/mm3 (4.0-10.0)
[2017-12-08 06:35] LABS: INR 1.29 (0.82-1.09); PROTHROMBIN TIME (PATIENT) 14.6 SEC (9.98-11.88)
[2017-12-08 06:42] LABS: ANION GAP 10 (8-16); BLOOD UREA NITROGEN 27 mg/dL (7-18); CALCIUM 8.7 mg/dL (8.5-10.1); CHLORIDE 102 mmol/L (98-107); CO2 31 mmol/L (21-32); CREATININE 1.1 mg/dL (0.55-1.02); GLUCOSE,RANDOM 93 mg/dL (74-106); POTASSIUM 3.9 mmol/L (3.5-5.1); SODIUM 143 mmol/L (136-145)
[2017-12-08] MEDS: HYDROCHLOROTHIAZIDE 25 MG TABLET (FP) PO SCH (09:56)
[2017-12-08] MEDS: CITALOPRAM HYDROBROMIDE 20 MG TABLET (FP) PO SCH (09:56)
[2017-12-08] MEDS: GABAPENTIN 300 MG CAPSULE (FP) PO SCH (09:56)
[2017-12-08] MEDS: ASPIRIN 81 MG CHEWABLE TABLETS PO SCH (09:56)
[2017-12-08] MEDS: FERROUS SO4 325 MG TABLET (FP) PO SCH (09:56)
[2017-12-08] MEDS: amLODIPine BESYLATE 5 MG TABLET (FP) PO SCH (09:56)
[2017-12-08] MEDS: DIGOXIN 0.125 MG TABLET (FP) PO SCH (09:56)
[2017-12-08] MEDS: MAGNESIUM OXIDE 400 MG TABLET (FP) PO SCH (09:57)
[2017-12-08] MEDS: LOSARTAN POTASSIUM 50 MG TABLET (FP) PO SCH (09:57)
--- NOTE | 2017-12-08 11:44 | DS ---
Physical Examination Vital Signs: Vital Signs Temperature 97.8 F 12/08/17 05:34 Pulse Rate 69 12/08/17 09:56 Respiratory Rate 17 12/08/17 05:34 Blood Pressure 124/44 12/08/17 05:34 O2 Sat by Pulse Oximetry (%) 98 12/07/17 19:31 Constitutional: Yes: No Distress Eyes: Yes: WNL HENT: Yes: WNL Neck: Yes: WNL Cardiovascular: Yes: Pulse Irregular Respiratory: Yes: WNL Gastrointestinal: Yes: WNL Renal/: Yes: WNL Musculoskeletal: Yes: WNL Extremities: Yes: WNL Edema: No Peripheral Pulses WNL: Yes Integumentary: Yes: WNL Wound/Incision: Yes: Clean/Dry Neurological: Yes: Confusion, Pre-Existing Deficit ...Motor Strength: WNL Psychiatric: Yes: Other Labs: CBC, BMP 12/08/17 06:00 12/08/17 06:00 Discharge Summary Reason For Visit: DIZZINESS Current Active Problems CVA (cerebral vascular accident) (Acute) Dementia (Acute) Dizziness (Acute) Procedures: Principal: CT HEAD/ Hospital Course: NEURO/CARDIO WORKUP COMPLETED WITH NO ACUTE CHANGES, WILL NEED LOVENOX DAILY 50MG WTIH COUMADIN UNTIL INR THERAPEUTIC. DISCUSSED WITH HER PMD DR JEAN Condition: Fair - Instructions Diet, Activity, Other Instructions: SEE DR JEAN IN 2 DAYS 12/10/17 AT 10AM FOR INR CHECK LOVENOX SQ 50MG DAILY UNTIL DR JEAN TAKES OFF COUMADIN 3.5MG DAILY LOW SALT DIET Referrals: Carrie Jean MD [Primary Care Provider] - Disposition: [facility]NS/HOME HEALTH CARE - Home Medications Comprehensive Discharge Medication List: Ambulatory Orders Alendronate Na [Fosamax (Weekly)] 70 mg PO Q7D 12/03/17 Amlodipine Besylate 5 mg PO DAILY 12/03/17 Aspirin [ASA -] 81 mg PO DAILY 12/03/17 Atorvastatin Calcium 40 mg PO DAILY 12/03/17 Cetirizine HCl [Zyrtec -] 10 mg PO HS 12/03/17 Citalopram Hydrobromide [Celexa -] 20 mg PO DAILY 12/03/17 Digoxin [Lanoxin -] 0.125 mg PO DAILY 12/03/17 Doxepin HCl [Silenor] 6 mg PO PRN 12/03/17 Ergocalciferol [Drisdol Oral Solution -] 5,000 units PO DAILY 12/03/17 Ferrous Sulfate 325 mg PO DAILY 12/03/17 Gabapentin 300 mg PO BID 12/03/17 Levothyroxine [Synthroid -] 75 mcg PO DAILY 12/03/17 Losartan/Hydrochlorothiazide [Losartan-Hctz 100-25 mg Tab] 1 each PO DAILY 12/03 Metoprolol Succinate 100 mg PO DAILY 12/03/17 Warfarin Sodium [Coumadin] 0 mg PO ASDIR 12/03/17 Enoxaparin [Lovenox -] 50 mg SQ DAILY #5 disp.syrin 12/08/17 Ergocalciferol [Vitamin D2] 50,000 unit PO Sa@1000 capsule 12/08/17 Warfarin Na [Coumadin -] 3.5 mg PO DAILY@1800 tablet 12/08/17 Warfarin Na [Coumadin -] 3.5 mg PO DAILY@1800 tablet 12/08/17
[2017-12-08 12:08] VITALS: BP 117/66; PULSE 65; TEMP 97.9
[2017-12-08] MEDS ORDERED: ENOXAPARIN NA (PORCINE) 60 MG/0.6 ML DISP.SYRIN SQ ONE (13:30)
--- NOTE | 2017-12-09 10:44 | PN ---
Progress Note (short form) - Note Progress Note: ADDENDUM: PATIENT WITH OLD CVA NOT ACUTE Problem List - Problems (1) Dementia Code(s): F03.90 - UNSPECIFIED DEMENTIA WITHOUT BEHAVIORAL DISTURBANCE (2) CVA (cerebral vascular accident) Code(s): I63.9 - CEREBRAL INFARCTION, UNSPECIFIED (3) Dizziness Code(s): R42 - DIZZINESS AND GIDDINESS (4) Fever Code(s): R50.9 - FEVER, UNSPECIFIED Qualifiers: Fever type: unspecified Qualified Code(s): R50.9 - Fever, unspecified (5) Hypertension Code(s): I10 - ESSENTIAL (PRIMARY) HYPERTENSION
== END 2017-12-08 13:49 | disposition home health service (06) | DRG 149 ==
LOC: JER 21:14 → JERBED 12-04 02:57 → J4W 12-04 04:26 → OBSVTOIN 12-04 14:24
PROVIDERS: ADMIT Internal Medicine; ATTEND Family Medicine
DX: H81.10 Benign paroxysmal vertigo, unspecified ear (principal); I69.351 Hemiplegia and hemiparesis following cerebral infarction affecting right dominant side; D72.829 Elevated white blood cell count, unspecified; I10 Essential (primary) hypertension; E78.5 Hyperlipidemia, unspecified; I48.91 Unspecified atrial fibrillation; E03.9 Hypothyroidism, unspecified; F03.90 Unspecified dementia, unspecified severity, without behavioral disturbance, psychotic disturbance, mood disturbance, and anxiety; I48.0 Paroxysmal atrial fibrillation
CPT/HCPCS: 36415; 70450-TC; 71045-TC-FY; 80048; 80053; 80162; 81003; 81015; 82550; 83735; 83880; 84100; 84443; 84484; 85025; 85027; 85610; 85730; 87086; 93005; 93010; 93306-TC; 93880-TC; 97116-GP; 97161-GP; 99284-25; G0378

== ENCOUNTER 2018-07-28 08:09 | Inpatient (IN) | payer OTHER ==
[2018-07-28] MEDS ORDERED: morphine CARPU-JECT 2 MG/1 ML DISP.SYRIN IVPUSH ONE (08:54)
[2018-07-28] MEDS ORDERED: MORPHINE SULFATE 2 MG/ML VIAL ONE (08:56)
[2018-07-28 09:13] LABS: BASO % 0.5 % (0-2.0); EOS % 1.9 % (0-4.5); HEMATOCRIT 36.4 % (32.4-45.2); HEMOGLOBIN 12.5 GM/dL (10.7-15.3); LYMPH % 13.5 % (8-40); MCH 27.9 pg (25.7-33.7); MCHC 34.4 g/dl (32.0-36.0); MEAN CELL VOLUME 81.1 fl (80-96); MEAN PLT VOLUME 9.8 fl (7.5-11.1); MONO % 5.7 % (3.8-10.2); NEUT % 78.4 % (42.8-82.8); PLATELET COUNT 226 K/MM3 (134-434); RBC 4.49 M/mm3 (3.60-5.2); RDW 17.2 % (11.6-15.6); WHITE BLOOD COUNT 14.3 K/mm3 (4.0-10.0)
--- NOTE | 2018-07-28 09:23 | PDOC ---
History of Present Illness - General Chief Complaint: Injury Stated Complaint: FALL Time Seen by Provider: 07/28/18 08:34 History Source: Patient Exam Limitations: No Limitations - History of Present Illness Initial Comments: 07/28/18 09:23 83-year-old female status post mechanical fall prior to arrival. Patient states was going up the steps when the wind blew her backwards landing on her left buttock and then hitting her head on the way down. Patient denies LOC and was ambulatory at the scene. Patient denies abdominal pain, difficulty breathing, visual changes, neck pain, nausea, or weakness. Patient currently on Coumadin for arrhythmia. Timing/Duration: 1 hour Severity: moderate Associated Symptoms: reports: other Past History - Travel Traveled outside of the country in the last 30 days: No - Past Medical History Allergies/Adverse Reactions: Allergies Allergy/AdvReac Type Severity Reaction Status Date / Time No Known Allergies Allergy Verified 07/28/18 11:35 Home Medications: Ambulatory Orders Alendronate Na [Fosamax (Weekly)] 70 mg PO Q7D 12/03/17 Amlodipine Besylate 5 mg PO DAILY 12/03/17 Aspirin [ASA -] 81 mg PO DAILY 12/03/17 Atorvastatin Calcium 40 mg PO DAILY 12/03/17 Cetirizine HCl [Zyrtec -] 10 mg PO HS 12/03/17 Citalopram Hydrobromide [Celexa -] 20 mg PO DAILY 12/03/17 Digoxin [Lanoxin -] 0.125 mg PO DAILY 12/03/17 Ergocalciferol [Drisdol Oral Solution -] 5,000 units PO DAILY 12/03/17 Ferrous Sulfate 325 mg PO DAILY 12/03/17 Gabapentin 300 mg PO BID 12/03/17 Levothyroxine [Synthroid -] 75 mcg PO DAILY 12/03/17 Losartan/Hydrochlorothiazide [Losartan-Hctz 100-25 mg Tab] 1 each PO DAILY 12/03 Metoprolol Succinate 100 mg PO DAILY 12/03/17 Warfarin Sodium [Coumadin] 2 mg PO DAILY 12/03/17 Ergocalciferol [Vitamin D2] 50,000 unit PO Sa@1000 capsule 12/08/17 Anemia: No Asthma: No Cancer: No Cardiac Disorders: Yes (afib) CVA: Yes (01/2015) COPD: No CHF: No Dementia: No Diabetes: No GI Disorders: No Disorders: No HTN: Yes Hypercholesterolemia: Yes Liver Disease: No Seizures: No Thyroid Disease: Yes - Surgical History Abdominal Surgery: No Appendectomy: No Cardiac Surgery: No Cholecystectomy: No Lung Surgery: No Neurologic Surgery: No Orthopedic Surgery: No - Suicide/Smoking/Psychosocial Hx Smoking History: Never smoked Have you smoked in the past 12 months: No Hx Alcohol Use: No Drug/Substance Use Hx: No Substance Use Type: None Hx Substance Use Treatment: No Patient Lives Alone: No 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 Review of Systems - Review of Systems Able to Perform ROS?: Yes Constitutional: No: Symptoms Reported HEENTM: No: Symptoms Reported Respiratory: No: Symptoms reported Cardiac (ROS): No: Symptoms Reported ABD/GI: No: Symptoms Reported : No: Symptoms Reported Musculoskeletal: Yes: Muscle Pain (left buttock pain) Integumentary: Yes: Bruising (left buttock) Neurological: No: Headache, Weakness, Dizziness *Physical Exam - Vital Signs Last Vital Signs Temp Pulse Resp BP Pulse Ox 97.9 F 76 18 155/63 97 07/28/18 08:22 07/28/18 08:22 07/28/18 08:22 07/28/18 08:22 07/28/18 08:22 - Physical Exam General Appearance: Yes: Nourished, Appropriately Dressed. No: Apparent Distress HEENT: positive: EOMI, SANDIE. negative: Pale Conjunctivae Neck: positive: Supple. negative: Tender, Decreased range of motion Respiratory/Chest: positive: Lungs Clear, Normal Breath Sounds. negative: Chest Tender, Respiratory Distress, Accessory Muscle Use Cardiovascular: positive: Regular Rhythm, Regular Rate. negative: Murmur Gastrointestinal/Abdominal: positive: Soft. negative: Tenderness Musculoskeletal: negative: CVA Tenderness, Vertebral Tenderness Extremity: positive: Normal Capillary Refill. negative: Pedal Edema Integumentary: positive: Ecchymosis (Large hematoma measuring 6x7 cm over the left buttock surrounding skin intact. Superficial abrasion noted to Center) Neurologic: positive: Normal Mood/Affect, Motor Strength 5/5 Moderate Sedation - Procedure Monitoring Vital Signs: Procedure Monitoring Vital Signs Temperature 97.9 F 07/28/18 08:22 Pulse Rate 76 07/28/18 08:22 Respiratory Rate 18 07/28/18 08:22 Blood Pressure 155/63 07/28/18 08:22 O2 Sat by Pulse Oximetry (%) 97 07/28/18 08:22 ED Treatment Course - LABORATORY CBC & Chemistry Diagram: 07/28/18 08:52 07/28/18 08:52 Medical Decision Making - Medical Decision Making 07/28/18 09:00 Chief complaint: Fell down concrete steps landing on left buttock now with large hematoma to area. Patient on Coumadin and did hit her head without LOC. Exam. Large hematoma over left buttock. No other acute findings Plan: Head and neck ET along with a pelvic CT to evaluate extent of hematoma. Labs, IV access, EKG tetanus for abrasion and morphine for discomfort. 07/28/18 11:52 Laboratory Tests 07/28/18 07/28/18 07/28/18 08:52 08:52 08:52 WBC 14.3 H Hgb 12.5 Hct 36.4 RDW 17.2 H Absolute Neuts (auto) 11.2 H PT with INR 34.20 H INR 2.87 H Sodium 141 Potassium 3.9 Chloride 104 Carbon Dioxide 27 Anion Gap 10 BUN 23 H Creatinine 1.0 Creat Clearance w eGFR 53.08 Random Glucose 91 Calcium 8.8 Total Bilirubin 0.5 AST 24 ALT 30 Alkaline Phosphatase 174 H Total Protein 6.6 Albumin 3.[address] and cervical CT negative for acute findings. Pelvic CT shows left buttock hematoma within the soft tissues measuring 5.2 x 6.2 x 2 cm. Call placed to patient's by care physician, Dr. styles. patient states feeling better after receiving morphine 07/28/18 12:02 Case discussed the patient's primary care physician who recommends to admit under Dr. Yuan. Case discussed with Dr. Mendez will admit to med surg. Left buttock hematoma circled with permanent marker *DC/Admit/Observation/Transfer Diagnosis at time of Disposition: Traumatic hematoma of buttock, Closed head injury, Anticoagulated by anticoagulation treatment - Discharge Dispostion Decision to Admit order: Yes - Referrals - Patient Instructions - Post Discharge Activity
[2018-07-28 09:27] LABS: INR 2.87 (0.83-1.09); PROTHROMBIN TIME (PATIENT) 34.2 SEC (9.7-13.0)
[2018-07-28] MEDS ORDERED: DIPHTH,PERTUSS(ACELL),TET 0.5 ML DISP.SYRIN IM ONE (09:32)
[2018-07-28 10:06] LABS: ALBUMIN 3.3 g/dl (3.4-5.0); ALK PHOS 174 U/L (45-117); ANION GAP 10 MMOL/L (8-16); BILIRUBIN,TOTAL 0.5 mg/dL (0.2-1); BLOOD UREA NITROGEN 23 mg/dL (7-18); CALCIUM 8.8 mg/dL (8.5-10.1); CHLORIDE 104 mmol/L (98-107); CO2 27 mmol/L (21-32); GLUCOSE,RANDOM 91 mg/dL (74-106); POTASSIUM 3.9 mmol/L (3.5-5.1); SGOT/AST 24 U/L (15-37); SGPT/ALT 30 U/L (13-61); SODIUM 141 mmol/L (136-145); TOT PROT 6.6 g/dl (6.4-8.2)
[2018-07-28] MEDS ORDERED: PRESCRIPTION PAD 1 EACH EACH NR ONE (12:13)
--- NOTE | 2018-07-28 12:51 | HP ---
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 Cardiovascular: Yes: AFIB, HTN - Smoking History Smoking history: Never smoked Have you smoked in the past 12 months: No - Alcohol/Substance Use Hx Alcohol Use: No Home Medications - Allergies Allergies/Adverse Reactions: Allergies Allergy/AdvReac Type Severity Reaction Status Date / Time No Known Allergies Allergy Verified 07/28/18 11:35 - Home Medications Home Medications: Ambulatory Orders Alendronate Na [Fosamax (Weekly)] 70 mg PO Q7D 12/03/17 Amlodipine Besylate 5 mg PO DAILY 12/03/17 Aspirin [ASA -] 81 mg PO DAILY 12/03/17 Atorvastatin Calcium 40 mg PO DAILY 12/03/17 Cetirizine HCl [Zyrtec -] 10 mg PO HS 12/03/17 Citalopram Hydrobromide [Celexa -] 20 mg PO DAILY 12/03/17 Digoxin [Lanoxin -] 0.125 mg PO DAILY 12/03/17 Ergocalciferol [Drisdol Oral Solution -] 5,000 units PO DAILY 12/03/17 Ferrous Sulfate 325 mg PO DAILY 12/03/17 Gabapentin 300 mg PO BID 12/03/17 Levothyroxine [Synthroid -] 50 mcg PO DAILY 12/03/17 Losartan/Hydrochlorothiazide [Losartan-Hctz 100-25 mg Tab] 1 each PO DAILY 12/03 Metoprolol Succinate 100 mg PO DAILY 12/03/17 Warfarin Sodium [Coumadin] 2 mg PO DAILY 12/03/17 Ergocalciferol [Vitamin D2] 50,000 unit PO Sa@1000 capsule 12/08/17 Physical Examination Vital Signs: Vital Signs Temperature 97.9 F 07/28/18 08:22 Pulse Rate 76 07/28/18 08:22 Respiratory Rate 18 07/28/18 08:22 Blood Pressure 155/63 07/28/18 08:22 O2 Sat by Pulse Oximetry (%) 97 07/28/18 08:22 Constitutional: Yes: Calm, Thin Cardiovascular: Yes: Regular Rate and Rhythm, S1, S2 Respiratory: Yes: CTA Bilaterally Gastrointestinal: Yes: Normal Bowel Sounds, Soft Musculoskeletal: Yes: Other (left buttock hematoma firm tender to touch) Edema: No Neurological: Yes: Other (right leg weakness( old)) Labs: CBC, BMP 07/28/18 08:52 07/28/18 08:52 Imaging - Results Cat Scan: Report Reviewed (left buttock hematoma chronic left MCA infarct) Problem List - Problems (1) Paroxysmal A-fib Assessment/Plan: tele cardiology eval regarding AC use given h/o multiple falls Code(s): I48.0 - PAROXYSMAL ATRIAL FIBRILLATION (2) Traumatic hematoma of buttock Assessment/Plan: cold compress monitor hematoma will hold aspirin and coiumadin for now monitor h/h stable for now Code(s): S30.0XXA - CONTUSION OF LOWER BACK AND PELVIS, INITIAL ENCOUNTER (3) CVA (cerebral vascular accident) Assessment/Plan: s/p cva 3 year ago neurology FU PT right sided weakness- LE since the stroke Code(s): I63.9 - CEREBRAL INFARCTION, UNSPECIFIED (4) Unsteady gait Assessment/Plan: PT eval will need snf family wants 24 hr aide at home needs extensive PT given multiple fall repeat ct head tmw given patient on AC Code(s): R26.81 - UNSTEADINESS ON FEET (5) Hypothyroid Assessment/Plan: tsh synthroid Code(s): E03.9 - HYPOTHYROIDISM, UNSPECIFIED
[2018-07-28] MEDS ORDERED: METOPROLOL TARTRATE 50 MG TABLET (FP) PO ONE (13:03)
[2018-07-28 13:23] LABS: URINE APPEARANCE CLEAR; URINE BILIRUBIN NEGATIVE (<2.0 mg/dL); URINE COLOR STRAW; URINE GLUCOSE (UA) NEGATIVE (NEGATIVE); URINE KETONE NEGATIVE (NEGATIVE); URINE LEUK ESTERASE NEGATIVE (NEGATIVE); URINE NITRITE NEGATIVE (NEGATIVE); URINE PROTEIN NEGATIVE (NEGATIVE); URINE UROBILINOGEN NEGATIVE mg/dL (0.2-1.0)
[2018-07-28] MEDS: LOSARTAN POTASSIUM 50 MG TABLET (FP) PO SCH (13:23)
[2018-07-28 13:27] LABS: EPI CELLS RARE /HPF (FEW); URINE BACTERIA RARE /hpf (NONE SEEN)
--- NOTE | 2018-07-28 15:27 | EKG ---
Test Reason : Blood Pressure : / mmHG Vent. Rate : 069 BPM Atrial Rate : 069 BPM P-R Int : 168 ms QRS Dur : 082 ms QT Int : 358 ms P-R-T Axes : 049 -08 035 degrees QTc Int : 383 ms NORMAL SINUS RHYTHM NONSPECIFIC ST AND T WAVE ABNORMALITY ABNORMAL ECG WHEN COMPARED WITH ECG OF 03-DEC-2017 21:37, NO SIGNIFICANT CHANGE WAS FOUND Confirmed by ISHMAEL RAY MD ([id number]) on 07/28/2018 3:27:05 PM Referred By: Confirmed By:ISHMAEL RAY MD
[2018-07-28 15:44] VITALS: BMI 22.3
--- NOTE | 2018-07-28 17:08 | CON.CARD ---
Consult Consult Specialty:: Cardiology Reason for Consultation:: AFIB. S/P Fall - History of Present Illness Chief Complaint: Fall History of Present Illness: This is an 83 year old female with a PMH of AFIB and HTN. She presents now S/P a fall. She was at the top of the stairs and fell back, hitting her head, neck, and buttock. There was no LOC. As per her family members she has had multiple falling episodes. Presently she is in NSR. 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 Cardio/Vascular: Yes: AFIB, HTN ...: No - Alcohol/Substance Use Hx Alcohol Use: No - Smoking History Smoking history: Never smoked Have you smoked in the past 12 months: No Home Medications - Allergies Allergies/Adverse Reactions: Allergies Allergy/AdvReac Type Severity Reaction Status Date / Time No Known Allergies Allergy Verified 07/28/18 11:35 - Home Medications Home Medications: Ambulatory Orders Alendronate Na [Fosamax (Weekly)] 70 mg PO Q7D 12/03/17 Amlodipine Besylate 5 mg PO DAILY 12/03/17 Aspirin [ASA -] 81 mg PO DAILY 12/03/17 Atorvastatin Calcium 40 mg PO DAILY 12/03/17 Cetirizine HCl [Zyrtec -] 10 mg PO HS 12/03/17 Citalopram Hydrobromide [Celexa -] 20 mg PO DAILY 12/03/17 Digoxin [Lanoxin -] 0.125 mg PO DAILY 12/03/17 Ergocalciferol [Drisdol Oral Solution -] 5,000 units PO DAILY 12/03/17 Ferrous Sulfate 325 mg PO DAILY 12/03/17 Gabapentin 300 mg PO BID 12/03/17 Levothyroxine [Synthroid -] 50 mcg PO DAILY 12/03/17 Losartan/Hydrochlorothiazide [Losartan-Hctz 100-25 mg Tab] 1 each PO DAILY 12/03 Metoprolol Succinate 100 mg PO DAILY 12/03/17 Warfarin Sodium [Coumadin] 2 mg PO DAILY 12/03/17 Ergocalciferol [Vitamin D2] 50,000 unit PO Sa@1000 capsule 12/08/17 Review of Systems Findings/Remarks: As per HPI Vital Signs: Vital Signs Temperature 97.8 F 07/28/18 15:38 Pulse Rate 67 07/28/18 15:38 Respiratory Rate 20 07/28/18 15:38 Blood Pressure 147/64 07/28/18 15:38 O2 Sat by Pulse Oximetry (%) 95 07/28/18 14:48 Constitutional: Yes: No Distress Eyes: Yes: WNL HENT: Yes: WNL Neck: Yes: Rigid Respiratory: Yes: CTA Bilaterally Gastrointestinal: Yes: Normal Bowel Sounds Cardiovascular: Yes: Regular Rate and Rhythm (NL S1S2, No MRHG) JVD: No Extremities: Yes: WNL Edema: No Neurological: Yes: Alert, Oriented (Grossly non focal) - Other Data Labs, Other Data: CBC, BMP 07/28/18 08:52 07/28/18 08:52 INR, PTT INR 2.87 (0.83-1.09) H 07/28/18 08:52 Troponin, BNP 07/28/18 08:52 Troponin I < 0.02 Troponin, BNP 07/28/18 08:52 Troponin I < 0.02 Assessment/Plan 83 year old female with a PMH of AFIB and HTN. She presents now S/P a fall. She was at the top of the stairs and fell back, hitting her head, neck, and buttock. There was no LOC. As per her family members she has had multiple falling episodes. Presently she is in NSR. Paroxsymal AFIB Presently she is in NSR. In terms of AC, I would favor not giving her coumadin for now, and following her as an outpatient to determine her AFIB burden. For now, I believe the risks of AC outweighs the benefits because of the frequent falls. Continue: Alendronate Na [Fosamax (Weekly)] 70 mg PO Q7D 12/03/17 Amlodipine Besylate 5 mg PO DAILY 12/03/17 Aspirin [ASA -] 81 mg PO DAILY 12/03/17 Atorvastatin Calcium 40 mg PO DAILY 12/03/17 Cetirizine HCl [Zyrtec -] 10 mg PO HS 12/03/17 Citalopram Hydrobromide [Celexa -] 20 mg PO DAILY 12/03/17 Digoxin [Lanoxin -] 0.125 mg PO DAILY 12/03/17 Ergocalciferol [Drisdol Oral Solution -] 5,000 units PO DAILY 12/03/17 Ferrous Sulfate 325 mg PO DAILY 12/03/17 Gabapentin 300 mg PO BID 12/03/17 Levothyroxine [Synthroid -] 50 mcg PO DAILY 12/03/17 Losartan/Hydrochlorothiazide [Losartan-Hctz 100-25 mg Tab] 1 each PO DAILY 12/03 Metoprolol Succinate 100 mg PO DAILY 12/03/17 Ergocalciferol [Vitamin D2] 50,000 unit PO Sa@1000 capsule 12/08/17
[2018-07-28] MEDS ORDERED: ACETAMINOPHEN 325 MG TABLET (FP) PO ONE (19:00)
[2018-07-28] MEDS ORDERED: ATORVASTATIN CA 40 MG TABLET (FP) PO ONE (22:00)
--- NOTE | 2018-07-28 22:37 | CONSULT ---
Consult - text type - Consultation Consultation Note: NEUROLOGY CONSULTATION is greatly appreciated: This 83 yo woman lives alone with a health aide. Sleeps with Niece in the same building. PMH sig for HTN, Hypothyroidism, CChol, ASHD and AFib. Maintained on: Alendronate; Amlodipine; Aspirin; Atorvastatin; Citalopram; Digoxin; Gabapentin ; levothyroxine; Losartan/Hydrochlorothiazide; Metoprolol; and Warfarin. 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 Please see my consultation of 12/04/17 for admission for vertigo. Now readmitted after one of multiple falls. CT of head (reviewed): Moderate, diffuse, atrophy with chronic left temporal and parietal infarcts. CT of Cervical spine: Moderate diffuse spondylosis without fracture or dislocation. WBC=14.3K HARSHA: No bruits. Neck ROM OK without tenderness. No head trauma. +Buttock echymosis. NEURO: Follows some commands in [place]. More fluent, but gibberish output than November. + Glabella Possible right visual field deficit. No facial. Gag OK. No tremor. No cogwheeling. Min right drift. Brisk reflexes. Right Babinski No obvious dystaxia Withdraws all 4's briskly Wide-based unsteady gait. IMP: 1. Chronic left cerebral dysfunction 2. Seems to be developing increased cognitive dysfunction since November but difficult to assess with aphasia. SUGGEST: Check B12, TSH, ESR R/O occult infection R/O seizures (by questioning health aide and family) D/C Gabapentin PT for gait with walker. 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 Thank you very much, Juanito Gilliam MD
[2018-07-29] MEDS: LEVOTHYROXINE NA 50 MCG TABLET (FP) PO SCH (06:08)
[2018-07-29 06:56] LABS: BASO % 0.5 % (0-2.0); EOS % 1.5 % (0-4.5); HEMATOCRIT 36.1 % (32.4-45.2); HEMOGLOBIN 11.6 GM/dL (10.7-15.3); LYMPH % 18.3 % (8-40); MCH 26.4 pg (25.7-33.7); MCHC 32.2 g/dl (32.0-36.0); MEAN CELL VOLUME 82.1 fl (80-96); MEAN PLT VOLUME 9.6 fl (7.5-11.1); MONO % 7.6 % (3.8-10.2); NEUT % 72.1 % (42.8-82.8); PLATELET COUNT 226 K/MM3 (134-434); RDW 16.9 % (11.6-15.6); WHITE BLOOD COUNT 14.1 K/mm3 (4.0-10.0)
[2018-07-29 07:15] LABS: INR 2.49 (0.83-1.09); PROTHROMBIN TIME (PATIENT) 29.7 SEC (9.7-13.0)
[2018-07-29 07:44] LABS: ALBUMIN 3.1 g/dl (3.4-5.0); ALK PHOS 161 U/L (45-117); ANION GAP 8 MMOL/L (8-16); BILIRUBIN,TOTAL 0.6 mg/dL (0.2-1); BLOOD UREA NITROGEN 22 mg/dL (7-18); CALCIUM 8.9 mg/dL (8.5-10.1); CHLORIDE 102 mmol/L (98-107); CHOLESTEROL 173 mg/dL (50-200); CO2 30 mmol/L (21-32); CREATININE 1.1 mg/dL (0.55-1.3); GLUCOSE,RANDOM 97 mg/dL (74-106); HDL CHOLESTEROL 47 mg/dL (40-60); PHOSPHOROUS 3.2 mg/dL (2.5-4.9); POTASSIUM 4.1 mmol/L (3.5-5.1); SGOT/AST 24 U/L (15-37); SGPT/ALT 28 U/L (13-61); SODIUM 140 mmol/L (136-145); TOT PROT 6.3 g/dl (6.4-8.2); TRIGLYCERIDES 152 mg/dL (0-150)
[2018-07-29] MEDS: amLODIPine BESYLATE 5 MG TABLET (FP) PO SCH (10:17)
[2018-07-29] MEDS: CITALOPRAM HYDROBROMIDE 20 MG TABLET (FP) PO SCH (10:17)
[2018-07-29] MEDS: LOSARTAN POTASSIUM 50 MG TABLET (FP) PO SCH (10:17)
--- NOTE | 2018-07-29 10:25 | PN ---
Progress Note, Physician Chief Complaint: Frequent falls History of Present Illness: NAD Seen by Cardiology CT head unreamarkable CT pelvis left buttock hematoma c/o pain left buttock has underlying chronic right sided weakness 2/2to CVA in November 2017 - Current Medication List Current Medications: Active Medications Amlodipine Besylate (Norvasc -) 5 mg PO DAILY [facility] Citalopram Hydrobromide (Celexa -) 20 mg PO DAILY@0800 [facility] Levothyroxine Sodium (Synthroid -) 50 mcg PO DAILY@0600 [facility] Last Admin: 07/29/18 06:08 Dose: 50 mcg Losartan Potassium (Cozaar -) 100 mg PO DAILY [facility] Last Admin: 07/28/18 13:23 Dose: Not Given - Objective Vital Signs: Vital Signs Temperature 97.8 F 07/29/18 08:08 Pulse Rate 76 07/29/18 08:08 Respiratory Rate 20 07/29/18 08:08 Blood Pressure 129/60 07/29/18 08:08 O2 Sat by Pulse Oximetry (%) 95 07/28/18 21:00 Constitutional: Yes: Well Nourished, No Distress, Calm Cardiovascular: Yes: Regular Rate and Rhythm Respiratory: Yes: Regular Gastrointestinal: Yes: Normal Bowel Sounds, Soft Musculoskeletal: Yes: WNL Extremities: Yes: WNL Edema: No Peripheral Pulses WNL: Yes Integumentary: Yes: Bruising (left buttock) Neurological: Yes: Alert, Oriented Psychiatric: Yes: Alert, Oriented Labs: CBC, BMP 07/29/18 06:20 07/29/18 06:20 INR, PTT INR 2.49 (0.83-1.09) H 07/29/18 06:20 Problem List - Problems (1) Frequent falls Assessment/Plan: -Physical therapy -See by Cardiology -Neurology consult -B12 and Thyroid profile normal -EMG and Lumbar MRI Code(s): R29.6 - REPEATED FALLS (2) Leukocytosis Assessment/Plan: -Hemtology consult -Had Leukocytosis in November 2017 Code(s): D72.829 - ELEVATED WHITE BLOOD CELL COUNT, UNSPECIFIED (3) Paroxysmal A-fib Assessment/Plan: -Chronic -NSR on admission -seen by cardiology -d/c warfarin for now until re-evaluation outpatient Code(s): I48.0 - PAROXYSMAL ATRIAL FIBRILLATION (4) Traumatic hematoma of buttock Assessment/Plan: -Surgery consult -Ice pack Q2h -Acetaminophen 650 Q4H PRN Code(s): S30.0XXA - CONTUSION OF LOWER BACK AND PELVIS, INITIAL ENCOUNTER (5) Unsteady gait Assessment/Plan: -Physical therapy -Neurology consult -EMG -Lumbar CT -B12 and thyroid profile normal Code(s): R26.81 - UNSTEADINESS ON FEET Assessment/Plan see problem list Physical therapy
--- NOTE | 2018-07-29 11:35 | CONSULT ---
Consultation: REQUESTING PROVIDER: Dr. Yuan CONSULT REQUEST: We have been asked to medically evaluate this patient for Leukocytosis. HISTORY OF PRESENT ILLNESS: Patient is an 83 year old female with a PMHx of Atrial Fibrillation (on Warfarin ), HTN, HLD, hypothyroidism, S/P MCA stroke (3 years ago) w/ residual aphasia and right hemiparesis who presented here s/p mechanical fall with pain in the left buttock. Patient' niece at bedside who states that she was going up the stairs to her house and lost balance then fell on her buttocks. According to patient's niece, her gait is very unstable since her stroke 3 years ago and has balance issues with falls almost everyday. Patient however denies any chest pain , palpitations, shortness of breath, or LOC before, during or after the fall. Patient complains of pain in the left buttock and reports severe discomfort to the point she is unable to put any pressure on it, which prompted this hospital visit Otherwise, patient denies any fever, chills, nausea, vomiting, abdominal pain, chest pain, palpitations, shortness of breath , headaches, dizziness, dysuria, hematuria, melena, hematochezia Patient was found to have leukocytosis dating back to 11/2017 and we were consulted for further evaluation Patient denies any use of steroids Denies any recent travel No family or personal history of blood disorders Reports having Mammogram few months ago and states it was normal Reports having colonoscopy 3 years ago and states it was normal PMHx: Atrial Fibrillation (on warfarin) HTN HLD, S/P MCA stroke (3 years ago) w/ residual aphasia and right hemiparesis Hypothyroidism PSHx: Hysterectomy Social Hx: Born in [place] Lives at home alone with a home health aid 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 No kids, not Denies alcohol use Denies drug use Denies history of smoking cigarettes Family Hx: Mother- Liver cancer Father- unknown Brother- Erythrocytosis (currently being worked up) Allergies: NKDA REVIEW OF SYSTEMS: CONSTITUTIONAL: Absent: fever, chills, diaphoresis, generalized weakness, malaise, loss of appetite, weight change HEENT: Absent: rhinorrhea, nasal congestion, throat pain, throat swelling, difficulty swallowing, mouth swelling, ear pain, eye pain, visual changes CARDIOVASCULAR: Absent: chest pain, syncope, palpitations, irregular heart rate, lightheadedness , peripheral edema RESPIRATORY: Absent: cough, shortness of breath, dyspnea with exertion, orthopnea, wheezing, stridor, hemoptysis GASTROINTESTINAL: Absent: abdominal pain, abdominal distension, nausea, vomiting, diarrhea, constipation, melena, hematochezia GENITOURINARY: Absent: dysuria, frequency, urgency, hesitancy, hematuria, flank pain, genital pain MUSCULOSKELETAL: Absent: myalgia, arthralgia, joint swelling, back pain, neck pain SKIN: Hematoma of left buttock Absent: rash, itching, pallor HEMATOLOGIC/IMMUNOLOGIC: Absent: easy bleeding, easy bruising, lymphadenopathy, frequent infections ENDOCRINE: Absent: unexplained weight gain, unexplained weight loss, heat intolerance, cold intolerance NEUROLOGIC: unsteady gait Absent: headache, focal weakness or paresthesias, dizziness, seizure, mental status changes, bladder or bowel incontinence PSYCHIATRIC: Absent: anxiety, depression, suicidal or homicidal ideation, hallucinations. PHYSICAL EXAMINATION Vital Signs Temperature 97.8 F 07/29/18 08:08 Pulse Rate 76 07/29/18 08:08 Respiratory Rate 20 07/29/18 08:08 Blood Pressure 129/60 07/29/18 08:08 O2 Sat by Pulse Oximetry (%) 95 07/28/18 21:00 GENERAL: Awake, alert, and fully oriented, in no acute distress. HEAD: Normal with no signs of trauma. EYES: Pupils equal, round and reactive to light, extraocular movements intact, sclera anicteric, conjunctiva clear. ENT: Oropharynx clear without exudates. Moist mucous membranes. NECK: (-) lymphadenopathy, JVD, or masses. LUNGS: Breath sounds equal, clear to auscultation bilaterally. No wheezes, and no crackles. No accessory muscle use. HEART: Regular rate and rhythm, normal S1 and S2 without murmur, rub or gallop. BREAST: No discoloration, retraction, masses. No nipple discharge (+) horizontal healed scar at the 3 clock on left breast ABDOMEN: Soft, nontender, not distended, normoactive bowel sounds, no guarding, no rebound, no masses. No hepatomegaly or splenomegaly. (+) healed vertical scar below umbilicus MUSCULOSKELETAL: No CVA tenderness. UPPER EXTREMITIES: No peripheral edema. LOWER EXTREMITIES: No peripheral edema. NEUROLOGICAL: Cranial nerves II-XII intact. Motor strength 5/5 LUE and LLE. 4/ 5 RLE. Sensory intact. PSYCHIATRIC: Cooperative. Good eye contact. Appropriate mood and affect. SKIN: (+) ecchymosis of the left buttock with extreme tenderness upon light palpation and firm. Laboratory Results 07/29/18 06:20 07/29/18 06:20 07/29/18 07/29/18 07/29/18 06:20 06:20 06:20 PT with INR 29.70 H INR 2.49 H Alkaline Phosphatase 161 H Total Protein 6.3 L Albumin 3.1 L Vitamin B12 TSH 1.51 Free T4 RPR Titer 07/29/18 07/29/18 06:20 06:20 PT with INR INR Alkaline Phosphatase Total Protein Albumin Vitamin B12 1921 H TSH Free T4 1.08 RPR Titer Nonreactive Active Medications Generic Name Dose Route Start Last Admin Trade Name Freq PRN Reason Stop Dose Admin Amlodipine Besylate 5 mg 07/29/18 10:00 07/29/18 10:17 Norvasc - PO 5 mg DAILY [facility] Administration Citalopram Hydrobromide 20 mg 07/29/18 08:00 07/29/18 10:17 Celexa - PO 20 mg DAILY@0800 [facility] Administration Levothyroxine Sodium 50 mcg 07/29/18 06:00 07/29/18 06:08 Synthroid - PO 50 mcg DAILY@0600 [facility] Administration Losartan Potassium 100 mg 07/28/18 13:00 07/29/18 10:17 Cozaar - PO 100 mg DAILY [facility] Administration ASSESSMENT/PLAN: Patient is an 83 year old female who presented s/p fall and found to have a hematoma of the left buttock. Patient was also found to have leukocytosis and we were consulted for further monitoring and management. Problem List: Hematoma of the left buttock s/p fall Mechanical fall with unsteady gait Leukocytosis Atrial Fibrillation (on Warfarin) HTN HLD, S/P MCA stroke (3 years ago) w/ residual aphasia and right hemiparesis Hypothyroidism Elevated ALP PLAN: -Review of past records reveal that patient has had leukocytosis dating back to 11/2017 when hospitalized WBC ranging between 12-14 Currently we can assume that counts obtained today might likely be reactive to the hematoma, but in view of chronicity we will need to obtain AUGUSTIN-2 and BCR Abl by PCR -Flow cytometry ordered -Will need to r/o rheumatological disorders, so will order TRAY and ESR -Will send Iron studies and folate levels -GGT due to persistently elevated ALP. Visit type - Emergency Visit Emergency Visit: Yes ED Registration Date: 07/28/18 Care time: The patient presented to the Emergency Department on the above date and was hospitalized for further evaluation of their emergent condition. - New Patient This patient is new to me today: Yes Date on this admission: 07/29/18 - Critical Care Critical Care patient: No
--- NOTE | 2018-07-29 14:27 | PN ---
Teaching Attending Note Name of Resident: Zenaida Hernandez ATTENDING PHYSICIAN STATEMENT I saw and evaluated the patient. I reviewed the resident's note and discussed the case with the resident. I agree with the resident's findings and plan as documented. SUBJECTIVE: Patient seen and examined Leucocytosis dating back at least to 12/15 Last Vital Signs Temp Pulse Resp BP Pulse Ox 97.8 F 76 20 129/60 95 07/29/18 08:08 07/29/18 08:08 07/29/18 08:08 07/29/18 08:08 07/29/18 09:00 HEENT: MALCOLM, EOM Intact Oropharynx: No thrush, No mucositis, upper dentures Neck: Supple Nodes: Without adenopathy Breasts: Without masses Cor: RSR, No murmurs, No gallops Lungs: Clear to P&A Abd: Soft, Normal bowel sounds, No organomegaly Ext:No significant edema Skin: No rashes, Integument intact Buttock hematoma and ecchymosis CBC, BMP 07/29/18 06:20 07/29/18 06:20 Current Medications Generic Name Dose Route Start Last Admin Trade Name Freq PRN Reason Stop Dose Admin Acetaminophen 650 mg 07/29/18 12:42 Tylenol - PO Q4H PRN PAIN OR FEVER Amlodipine Besylate 5 mg 07/29/18 10:00 07/29/18 10:17 Norvasc - PO 5 mg DAILY [facility] Administration Citalopram Hydrobromide 20 mg 07/29/18 08:00 07/29/18 10:17 Celexa - PO 20 mg DAILY@0800 [facility] Administration Levothyroxine Sodium 50 mcg 07/29/18 06:00 07/29/18 06:08 Synthroid - PO 50 mcg DAILY@0600 [facility] Administration Losartan Potassium 100 mg 07/28/18 13:00 07/29/18 10:17 Cozaar - PO 100 mg DAILY [facility] Administration IMPRESSION: LEUCOCYTOSIS - for BCR-ABL by PCR .AUGUSTIN-2, and flow For TRAY, ESR, Fe++ studies Based upon results- further recommendations. OBJECTIVE: ASSESSMENT AND PLAN:
--- NOTE | 2018-07-29 18:18 | CONSULT ---
Consult Consult Specialty:: General Surgery Referred by:: Hattie Pollock Reason for Consultation:: left buttock hematoma - History of Present Illness Chief Complaint: left buttock pain, bruising after fall History of Present Illness: 83yo F with multiple medical problems including afib and h/o cva on coumadin and asa, recent falls, was walking on concrete steps to basement apartment yesterday and fell <3ft onto concrete, hitting her head, back and buttocks. She was able to enter her apartment, and family called EMS; she complained mostly of left buttock pain. The patient reports she slipped and lost her balance. She admits to a headache prior to the fall, and some dizziness , as well as not seeing very well, even with her glasses. In ER, she was evaluated and noted to have ecchymosis of left buttock; imaging was done, with negative head CT (repeated also negative), pelvic CT showing moderate left buttock hematoma, and she was admitted to medical service. She has been using cold compresses on the area with some relief, and H/H is stable. Her INR is still therapeutic today, though asa and coumadin are being held. Surgery is asked to assess. She is seen and examined in bed, with no family present. residential life director facilitated communication in Tongan at bedside. She denies pain except for left buttock. Is able to answer questions, but seems a little confused - she states this happened four days ago, but she came right to hospital afterward. Denies bowel or bladder problems, CP or SOB, N/V. She has cold pack on her left buttock and moves well in bed. When asked if she has fallen a lot recently, she said no, but did fall once at a different house. Per chart, she has had multiple falls recently. 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 Cardio/Vascular: Yes: AFIB, HTN Reproductive: Yes: Postmenopausal Endocrine: Yes: Hypothyroidism - Past Surgical History Past Surgical History: Yes: None - Alcohol/Substance Use Hx Alcohol Use: No History of Substance Use: reports: None - Smoking History Smoking history: Never smoked Have you smoked in the past 12 months: No - Social History Usual Living Arrangement: With Child ADL: Support Services (pt has aide at home) Home Medications - Allergies Allergies/Adverse Reactions: Allergies Allergy/AdvReac Type Severity Reaction Status Date / Time No Known Allergies Allergy Verified 07/28/18 11:35 - Home Medications Home Medications: Ambulatory Orders Alendronate Na [Fosamax (Weekly)] 70 mg PO Q7D 12/03/17 Amlodipine Besylate 5 mg PO DAILY 12/03/17 Aspirin [ASA -] 81 mg PO DAILY 12/03/17 Atorvastatin Calcium 40 mg PO DAILY 12/03/17 Cetirizine HCl [Zyrtec -] 10 mg PO HS 12/03/17 Citalopram Hydrobromide [Celexa -] 20 mg PO DAILY 12/03/17 Digoxin [Lanoxin -] 0.125 mg PO DAILY 12/03/17 Ergocalciferol [Drisdol Oral Solution -] 5,000 units PO DAILY 12/03/17 Ferrous Sulfate 325 mg PO DAILY 12/03/17 Gabapentin 300 mg PO BID 12/03/17 Levothyroxine [Synthroid -] 75 mcg PO DAILY 12/03/17 Losartan/Hydrochlorothiazide [Losartan-Hctz 100-25 mg Tab] 1 each PO DAILY 12/03 Metoprolol Succinate 100 mg PO DAILY 12/03/17 Warfarin Sodium [Coumadin] 2 mg PO DAILY 12/03/17 Ergocalciferol [Vitamin D2] 50,000 unit PO Sa@1000 capsule 12/08/17 Doxepin HCl [Silenor] 6 mg PO HS 07/29/18 Family Disease History - Family Disease History Family History: Unable to Obtain (pt cannot offer and language barrier) Review of Systems - Review of Systems Constitutional: denies: Chills, Fever Eyes: reports: Blurred Vision (per pt, vision is not great with or without her glasses). denies: Double Vision HENT: denies: Difficult Swallowing, Throat Pain Neck: denies: Swollen Glands, Tenderness Cardiovascular: denies: Chest Pain, Palpitations Respiratory: denies: Cough, SOB Gastrointestinal: denies: Abdominal Pain, Constipation, Dysphagia, Nausea, Vomiting Genitourinary: denies: Burning, Dysuria Musculoskeletal: reports: Muscle Pain (with hpi/L buttock). denies: Joint Pain Integumentary: reports: Bruising (with hpi), Lump (with hpi). denies: Rash Neurological: reports: Dizziness (with hpi), Headache (pt admits to before fall) , Unsteady Gait (with hpi) Hematology/Lymphatic: reports: Easily Bruised Physical Exam Vital Signs: Vital Signs Temperature 98.4 F 07/29/18 14:40 Pulse Rate 89 07/29/18 14:40 Respiratory Rate 18 07/29/18 14:40 Blood Pressure 146/64 07/29/18 14:40 O2 Sat by Pulse Oximetry (%) 95 07/29/18 09:00 Constitutional: Yes: No Distress, Calm, Thin Eyes: Yes: Conjunctiva Clear, EOM Intact, Other (wearing glasses) HENT: Yes: Atraumatic, Normocephalic Neck: Yes: Supple, Trachea Midline Cardiovascular: Yes: Regular Rate and Rhythm (with occasional ectopic beats vs afib?). No: Murmur Respiratory: Yes: Regular, CTA Bilaterally Gastrointestinal: Yes: Normal Bowel Sounds, Soft. No: Tenderness ...Rectal Exam: Yes: Deferred, Other (left buttock with moderate ecchymosis and firm, swollen area overlying hematoma (on CT), tender, very small central spot of superficial abrasion/skin denuded with <1cm black spot, adjacent pink but no drainage or open area; right buttock nontender, tiny linear superficial scrape along upper margin of right buttock, no bruising or firmness; pt using cold pack over left buttock) Renal/: No: CVA Tenderness - Left, CVA Tenderness - Right Musculoskeletal: No: Joint Stiffness, Joint Swelling Extremities: No: Cool, Cyanosis Edema: No Peripheral Pulses WNL: Yes Integumentary: Yes: Bruising (L buttock, see above), Skin Tear (small superficial in center of left buttock ecchymosis). No: Jaundice, Rash Wound/Incision: Yes: Clean/Dry, Open to air, Other (bruising only, see above, L buttock) Neurological: Yes: Alert, Oriented Psychiatric: Yes: Alert, Oriented Labs: CBC, BMP 07/29/18 06:20 07/29/18 06:20 CMP Sodium 140 mmol/L (136-145) 07/29/18 06:20 Potassium 4.1 mmol/L (3.5-5.1) 07/29/18 06:20 Chloride 102 mmol/L (98-107) 07/29/18 06:20 Carbon Dioxide 30 mmol/L (21-32) 07/29/18 06:20 Anion Gap 8 MMOL/L (8-16) 07/29/18 06:20 BUN 22 mg/dL (7-18) H 07/29/18 06:20 Creatinine 1.1 mg/dL (0.55-1.3) 07/29/18 06:20 Creat Clearance w eGFR 47.55 (>60) 07/29/18 06:20 Random Glucose 97 mg/dL (74-106) 07/29/18 06:20 Calcium 8.9 mg/dL (8.5-10.1) 07/29/18 06:20 Phosphorus 3.2 mg/dL (2.5-4.9) 07/29/18 06:20 Magnesium 2.0 mg/dL (1.8-2.4) 07/29/18 06:20 Ferritin 30.3 ng/ml (8-388) 07/29/18 15:30 Total Bilirubin 0.6 mg/dL (0.2-1) 07/29/18 06:20 AST 24 U/L (15-37) 07/29/18 06:20 ALT 28 U/L (13-61) 07/29/18 06:20 Alkaline Phosphatase 161 U/L (45-117) H 07/29/18 06:20 Creatine Kinase 201 IU/L (26-192) H 07/29/18 06:20 Creatine Kinase Index 1.0 % (0.0-5.0) 07/29/18 06:20 CK-MB (CK-2) 2.2 ng/mL (0.5-3.6) 07/29/18 06:20 Troponin I < 0.02 ng/ml (0.00-0.05) 07/29/18 06:20 Total Protein 6.3 g/dl (6.4-8.2) L 07/29/18 06:20 Albumin 3.1 g/dl (3.4-5.0) L 07/29/18 06:20 Triglycerides 152 mg/dL (0-150) H 07/29/18 06:20 Cholesterol 173 mg/dL (50-200) 07/29/18 06:20 Total LDL Cholesterol 101 mg/dL (5-100) H 07/29/18 06:20 HDL Cholesterol 47 mg/dL (40-60) 07/29/18 06:20 Vitamin B12 1921 pg/ml (193-986) H 07/29/18 06:20 Serum Folate 29 ng/mL (3.1-17.5) H 07/29/18 15:30 TSH 1.51 uIU/ml (0.358-3.74) 07/29/18 06:20 Free T4 1.08 ng/dl (0.76-1.46) 07/29/18 06:20 INR, PTT INR 2.49 (0.83-1.09) H 07/29/18 06:20 Urine Test Results Urine Color Straw 07/28/18 08:52 Urine Appearance Clear 07/28/18 08:52 Urine pH 7.0 (5.0-8.0) 07/28/18 08:52 Ur Specific [place] 1.009 (1.010-1.035) L 07/28/18 08:52 Urine Protein Negative (NEGATIVE) 07/28/18 08:52 Urine Glucose (UA) Negative (NEGATIVE) 07/28/18 08:52 Urine Ketones Negative (NEGATIVE) 07/28/18 08:52 Urine Blood 1+ (NEGATIVE) H 07/28/18 08:52 Urine Nitrite Negative (NEGATIVE) 07/28/18 08:52 Urine Bilirubin Negative (<2.0 mg/dL) 07/28/18 08:52 Ur Leukocyte Esterase Negative (NEGATIVE) 07/28/18 08:52 Ur Epithelial Cells Rare /HPF (FEW) 07/28/18 08:52 Urine Bacteria Rare /hpf (NONE SEEN) 07/28/18 08:52 INR still therapeutic BUN/Cr still a little elevated wbc up since 12/15 per heme note Imaging - Results Cat Scan: Report Reviewed, Image Reviewed (images personally reviewed - left buttock hematoma in subcutaneous tissues) Problem List - Problems (1) Traumatic hematoma of buttock Assessment/Plan: appears stable - H/H without acute change will need time for resorption and resolution agree with holding anticoagulation and aspirin defer to cardio/hematology to discuss R/B of ultimately resuming, given h/o frequent falls would not open or drain at this time unless evidence of infection develops ideally, without further bleeding, hematoma will liquefy and resorb and bruising will resolve, but will take weeks at least overlying skin may necrose and could possibly require debridement at some point , but would then require open wound care agree with cold compresses for comfort as desired - 15-20 mins at a time, every few hours, not directly on skin (through gown/underwear/pillowcase, etc) ambulation with physical therapy pain meds prn - would use NONNARCOTICS first line - tylenol, avoid NSAIDs will follow up with you Code(s): S30.0XXA - CONTUSION OF LOWER BACK AND PELVIS, INITIAL ENCOUNTER Qualifiers: Encounter type: initial encounter Qualified Code(s): S30.0XXA - Contusion of lower back and pelvis, initial encounter (2) Fall (on) (from) other stairs and steps, sequela Code(s): W10.8XXS - FALL (ON) (FROM) OTHER STAIRS AND STEPS, SEQUELA (3) Frequent falls Code(s): R29.6 - REPEATED FALLS (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
[2018-07-29] MEDS: ACETAMINOPHEN 325 MG TABLET (FP) PO PRN (21:50)
[2018-07-30] MEDS: LEVOTHYROXINE NA 50 MCG TABLET (FP) PO SCH (06:06)
[2018-07-30] MEDS: CITALOPRAM HYDROBROMIDE 20 MG TABLET (FP) PO SCH (08:53)
[2018-07-30] MEDS: LOSARTAN POTASSIUM 50 MG TABLET (FP) PO SCH (09:06)
[2018-07-30] MEDS: amLODIPine BESYLATE 5 MG TABLET (FP) PO SCH (09:06)
--- NOTE | 2018-07-30 11:21 | DS ---
Physical Examination Vital Signs: Vital Signs Temperature 98.4 F 07/30/18 05:59 Pulse Rate 100 H 07/30/18 05:59 Respiratory Rate 20 07/30/18 05:59 Blood Pressure 136/62 07/30/18 05:59 O2 Sat by Pulse Oximetry (%) 95 07/29/18 21:00 Constitutional: Yes: No Distress Eyes: Yes: WNL HENT: Yes: WNL Neck: Yes: WNL Cardiovascular: Yes: Pulse Irregular Respiratory: Yes: WNL Gastrointestinal: Yes: WNL Renal/: Yes: WNL Musculoskeletal: Yes: Muscle Weakness Extremities: Yes: WNL Edema: No Peripheral Pulses WNL: Yes Integumentary: Yes: WNL Wound/Incision: Yes: Clean/Dry Neurological: Yes: Pre-Existing Deficit ...Motor Strength: WNL Psychiatric: Yes: WNL Labs: CBC, BMP 07/29/18 06:20 07/29/18 06:20 Discharge Summary Reason For Visit: TRAUMATIC HEMATOMA OF BUTTOCK Current Active Problems Anticoagulated by anticoagulation treatment (Acute) Closed head injury (Acute) Fall (on) (from) other stairs and steps, sequela (Acute) Frequent falls (Acute) H/O: CVA (cerebrovascular accident) (Acute) Hypothyroid (Acute) Leukocytosis (Acute) shelter current use of anticoagulant therapy (Acute) Paroxysmal A-fib (Acute) Traumatic hematoma of buttock (Acute) Unsteady gait (Acute) Procedures: Principal: CT SCANS Hospital Course: ADMITTED WITH A FALL, ON AC WITH LEUKOCYTOSIS, HEME/ONC WORKUP, PT EVAL Condition: Stable - Instructions Diet, Activity, Other Instructions: HOME WITH HEALTH AID/NURSE SEE DR JEAN IN 1 WEEK Referrals: Kendrick Yuan MD [Primary Care Provider] - Disposition: VNS/HOME HEALTH CARE - Home Medications Comprehensive Discharge Medication List: Ambulatory Orders Alendronate Na [Fosamax (Weekly)] 70 mg PO Q7D 12/03/17 Amlodipine Besylate 5 mg PO DAILY 12/03/17 Aspirin [ASA -] 81 mg PO DAILY 12/03/17 Atorvastatin Calcium 40 mg PO DAILY 12/03/17 Cetirizine HCl [Zyrtec -] 10 mg PO HS 12/03/17 Citalopram Hydrobromide [Celexa -] 20 mg PO DAILY 12/03/17 Digoxin [Lanoxin -] 0.125 mg PO DAILY 12/03/17 Ergocalciferol [Drisdol Oral Solution -] 5,000 units PO DAILY 12/03/17 Ferrous Sulfate 325 mg PO DAILY 12/03/17 Gabapentin 300 mg PO BID 12/03/17 Levothyroxine [Synthroid -] 75 mcg PO DAILY 12/03/17 Losartan/Hydrochlorothiazide [Losartan-Hctz 100-25 mg Tab] 1 each PO DAILY 12/03 Metoprolol Succinate 100 mg PO DAILY 12/03/17 Warfarin Sodium [Coumadin] 2 mg PO DAILY 12/03/17 Ergocalciferol [Vitamin D2] 50,000 unit PO Sa@1000 capsule 12/08/17 Doxepin HCl [Silenor] 6 mg PO HS 07/29/18
[2018-07-30] MEDS: ACETAMINOPHEN 325 MG TABLET (FP) PO PRN (18:50)
[2018-07-31] MEDS: LEVOTHYROXINE NA 50 MCG TABLET (FP) PO SCH (06:30)
[2018-07-31 08:09] LABS: SERUM IRON SATURATION 10 % (15-55); TOTAL IRON BINDING CAPACITY 347 ug/dL (250-450); UIBC 312 ug/dL (118-369)
[2018-07-31] MEDS: LOSARTAN POTASSIUM 50 MG TABLET (FP) PO SCH (08:59)
[2018-07-31] MEDS: CITALOPRAM HYDROBROMIDE 20 MG TABLET (FP) PO SCH (08:59)
[2018-07-31] MEDS: amLODIPine BESYLATE 5 MG TABLET (FP) PO SCH (08:59)
--- NOTE | 2018-07-31 13:12 | PN ---
Progress Note (short form) - Note Progress Note: AWAITING DISCHARGE FORMS COMPLETED OUTREACH MANAGER TRYING TO GET IN TOUCH WITH THE PATIENTS HOME CARE AGENCY TO RESTART SERVICES PATIENT AWAKE ALERT NAD FEELS GOOD
[2018-07-31 15:11] VITALS: BP 148/73; PULSE 116; TEMP 98
--- NOTE | 2018-08-03 16:48 | PATH ---
Surgical Pathology Report Patient Name: MIAN AMBRIZ [facility]. Rec. #: [id number] /Age/Gender: 1935 (Age: 83) / F Account: [id number] Location: [address] [place] [address] Taken: 08/01/2018 Received: 08/01/2018 Reported: 08/03/2018 Physicians: Waqas Ortiz M.D. Specimen(s) Received 4 LAVENDER TOP AND 2 GREEN TOP TUBES Clinical History Leukocytosis Final Diagnosis FLOW CYTOMETRY ANALYSIS performed and interpreted at [place], [place] (Specimen #: [id number]) shows the following: INTERPRETATION: Although there is no increase in blasts by flow cytometric analysis, there is alteration in the expression of myeloid antigens on the maturing myeloid elements. In the sample analyzed, there is no evidence of a B-cell or T-cell lymphoma. Comment: Correlation with a comprehensive morphologic explanation and molecular studies is recommended. JAK2 (V617F) MUTATION ANALYSIS BY PCR performed and interpreted at [facility] [place] (Specimen #: [id number]) shows the following: RESULTS: Only the wild-type JAK2 sequence was detected. INTERPRETATION: Negative for JAK2 (V617F) Mutation See [facility] report (Specimen #: [id number] and [id number]) for additional details. Electronically Signed Mary Cuevas M.D. Addendum Reported: 08/05/2018 Addendum Diagnosis BCR-ABL Gene Rearrangement (IS) Analysis performed and interpreted at [facility] [place] (Specimen #: [id number]) shows the following: RESULTS: Negative: BCRABL1 not detected. INTERPRETATION: The BCRABL1 translocation was not detected. See [facility] Report (Specimen #: [id number]) for additional details. Mary Cuevas M.D. 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 However, the clinical significance of this JAK2 alternative splicing is not known at current time. Result must be correlated with other clinical data or the most accurate diagnosis. See [facility] report (Specimen ID: [id number]) for additional details. Mary Cuevas M.D. Gross Description Received are 4 lavender top tubes and 2 green top tubes of blood which are sent to [facility] [place]. 08/01/201808/01/2018
== END 2018-07-31 16:34 | disposition home health service (06) | DRG 605 ==
LOC: JER 08:09 → JERBED 12:04 → J6S 15:17
PROVIDERS: ADMIT Family Medicine; ATTEND Family Medicine
DX: S30.0XXA Contusion of lower back and pelvis, initial encounter (principal); I69.351 Hemiplegia and hemiparesis following cerebral infarction affecting right dominant side; I48.0 Paroxysmal atrial fibrillation; R26.81 Unsteadiness on feet; E03.9 Hypothyroidism, unspecified; I10 Essential (primary) hypertension; D72.829 Elevated white blood cell count, unspecified; E78.5 Hyperlipidemia, unspecified; W19.XXXA Unspecified fall, initial encounter; Y93.9 Activity, unspecified; Y92.89 Other specified places as the place of occurrence of the external cause; Y99.9 Unspecified external cause status
CPT/HCPCS: 36415; 70450-TC; 72125-TC; 72148-TC; 72192-TC; 80053; 80061; 80162; 81003; 81015; 82550; 82553; 82607; 82728; 82746; 82977; 83540; 83550; 83721; 83735; 84100; 84439; 84443; 84466; 84484; 85025; 85610; 85651; 86038; 86593; 86850; 86900; 86901; 87086; 88300-TC; 90715; 93005; 93010; 95860-TC; 97116-GP; 97161-GP; 99283-25

== ENCOUNTER 2021-03-21 12:42 | Emergency (ER) | payer OTHER ==
[2021-03-21 13:26] VITALS: BMI 18.8
[2021-03-21 15:11] LABS: BASO % 0.5 % (0-2.0); EOS % 0.2 % (0-4.5); HEMATOCRIT 41.7 % (32.4-45.2); HEMOGLOBIN 14.4 GM/dL (10.7-15.3); LYMPH % 8.3 % (8-40); MCH 30.3 pg (25.7-33.7); MCHC 34.5 g/dl (32.0-36.0); MEAN CELL VOLUME 87.9 fl (80-96); MEAN PLT VOLUME 9.2 fl (7.5-11.1); MONO % 6.3 % (3.8-10.2); NEUT % 84.7 % (42.8-82.8); PLATELET COUNT 219 10^3/uL (134-434); RBC 4.75 M/mm3 (3.60-5.2); RDW 14.6 % (11.6-15.6); WHITE BLOOD COUNT 11.1 K/mm3 (4.0-10.0)
[2021-03-21] MEDS ORDERED: hydrALAZINE HCL 25 MG TABLET (FP) PO ONE (15:17)
[2021-03-21] MEDS ORDERED: hydrALAZINE HCL 25 MG TABLET (FP) ONE (15:25)
[2021-03-21 15:26] LABS: CHLORIDE 106 mmol/L (98-107); SODIUM 140 mmol/L (136-145)
[2021-03-21 15:28] LABS: CALCIUM 9.4 mg/dL (8.5-10.1)
[2021-03-21 15:29] LABS: ANION GAP 10 MMOL/L (8-16); CO2 24 mmol/L (21-32); GLUCOSE,RANDOM 89 mg/dL (74-106)
[2021-03-21 15:32] LABS: SGOT/AST 29 U/L (15-37)
[2021-03-21 15:33] LABS: BILIRUBIN,TOTAL 0.7 mg/dL (0.2-1); CREATININE 0.6 mg/dL (0.55-1.3); TOT PROT 6.8 g/dl (6.4-8.2)
[2021-03-21 15:47] LABS: ALK PHOS 100 U/L (45-117); SGPT/ALT 34 U/L (13-61)
[2021-03-21 19:07] VITALS: BP 170/75; PULSE 75; TEMP 98.1
== END 2021-03-21 17:00 | disposition home or self-care (01) ==
LOC: JER 12:42
DX: I10 Essential (primary) hypertension (principal)
CPT/HCPCS: 36415; 71045-TC-FY; 80053; 82550; 84443; 84484; 85025; 93005; 93010; 99285-25

== ENCOUNTER 2021-10-10 17:53 | Emergency (ER) | payer OTHER ==
[2021-10-10 18:08] VITALS: PULSE 98; TEMP 98.9; BMI 18.3
[2021-10-10] MEDS ORDERED: LIDOCAINE 5% TOPICAL PATCH TP ONE (19:12)
[2021-10-10] MEDS ORDERED: KETOROLAC TROMETHAMINE 30 MG/1 ML VIAL IVPB ONE (19:12)
[2021-10-10] MEDS ORDERED: morphine CARPU-JECT 2 MG/1 ML DISP.SYRIN IVPUSH ONE (19:20)
[2021-10-10] MEDS ORDERED: KETOROLAC TROMETHAMINE 15 MG/ML VIAL ONE (19:56)
[2021-10-10] MEDS ORDERED: LIDOCAINE 5% TOPICAL PATCH ONE (19:56)
[2021-10-10 20:14] VITALS: BP 173/71
[2021-10-10 21:15] LABS: BASO % 0.5 % (0-2.0); EOS % 0.3 % (0-4.5); HEMATOCRIT 40.2 % (32.4-45.2); HEMOGLOBIN 13.7 GM/dL (10.7-15.3); LYMPH % 8.2 % (8-40); MCH 30.2 pg (25.7-33.7); MCHC 34.1 g/dl (32.0-36.0); MEAN CELL VOLUME 88.6 fl (80-96); MEAN PLT VOLUME 9.5 fl (7.5-11.1); MONO % 5.5 % (3.8-10.2); NEUT % 85.5 % (42.8-82.8); PLATELET COUNT 219 10^3/uL (134-434); RBC 4.54 M/mm3 (3.60-5.2); RDW 14.3 % (11.6-15.6); WHITE BLOOD COUNT 10.4 K/mm3 (4.0-10.0)
[2021-10-10 21:35] LABS: CALCIUM 10.4 mg/dL (8.5-10.1)
[2021-10-10 21:36] LABS: ALBUMIN 3.9 g/dl (3.4-5.0); BLOOD UREA NITROGEN 24.7 mg/dL (7-18)
[2021-10-10 21:39] LABS: CREATININE 0.9 mg/dL (0.55-1.3)
[2021-10-10 21:41] LABS: BILIRUBIN,TOTAL 0.3 mg/dL (0.2-1); TOT PROT 6.8 g/dl (6.4-8.2)
[2021-10-10] MEDS ORDERED: LIDOCAINE PATCH REMOVAL MC SCH (22:00)
== END 2021-10-10 22:13 | disposition home or self-care (01) ==
LOC: JER 17:53
PROC: 3E0333Z Introduction of Anti-inflammatory into Peripheral Vein, Percutaneous Approach (ICD-10-PCS; principal; 2021-10-10)
PROC: 3E033NZ Introduction of Analgesics, Hypnotics, Sedatives into Peripheral Vein, Percutaneous Approach (ICD-10-PCS; 2021-10-10)
DX: M54.31 Sciatica, right side (principal)
CPT/HCPCS: 36415; 80053; 85025; 99284-25

== ENCOUNTER 2023-07-30 05:18 | Observation (INO) | payer OTHER ==
[2023-07-30 05:24] VITALS: TEMP 97.5; BMI 17.3
[2023-07-30] MEDS ORDERED: DIPHTH,PERTUSS(ACELL),TET 0.5 ML DISP.SYRIN IM ONE ×2 (06:08→06:24)
[2023-07-30] MEDS ORDERED: ACETAMINOPHEN 1000 MG/100 ML BAG IVPB ONE (06:23)
[2023-07-30] MEDS ORDERED: ACETAMINOPHEN INJECTION 100 ML IVPB ONE (06:24)
[2023-07-30 06:34] LABS: BASO % 1.1 % (0-2.0); EOS % 2.8 % (0-4.5); HEMATOCRIT 42.9 % (32.4-45.2); HEMOGLOBIN 14.3 GM/dL (10.7-15.3); MCH 30.4 pg (25.7-33.7); MCHC 33.4 g/dl (32.0-36.0); MONO % 8.8 % (3.8-10.2); NEUT % 70.3 % (42.8-82.8); PLATELET COUNT 213 10^3/uL (134-434); RBC 4.71 M/mm3 (3.60-5.2); RDW 13.8 % (11.6-15.6); WHITE BLOOD COUNT 5.9 K/mm3 (4.0-10.0)
[2023-07-30 06:55] LABS: POTASSIUM 3.8 mmol/L (3.5-5.1)
[2023-07-30 06:57] LABS: CALCIUM 9.6 mg/dL (8.5-10.1)
[2023-07-30 06:58] LABS: ALBUMIN 3.8 g/dl (3.4-5.0); BLOOD UREA NITROGEN 18.6 mg/dL (7-18)
[2023-07-30 07:03] LABS: BILIRUBIN,TOTAL 0.4 mg/dL (0.2-1); TOT PROT 6.4 g/dl (6.4-8.2)
[2023-07-30 07:57] LABS: PH,URINE 8.5 (5.0-8.0); URINE APPEARANCE CLOUDY; URINE BILIRUBIN NEGATIVE (NEGATIVE); URINE COLOR YELLOW; URINE GLUCOSE (UA) NEGATIVE (NEGATIVE); URINE KETONE NEGATIVE (NEGATIVE); URINE LEUK ESTERASE NEGATIVE (NEGATIVE); URINE NITRITE NEGATIVE (NEGATIVE); URINE PROTEIN NEGATIVE (NEGATIVE); URINE UROBILINOGEN 0.2 mg/dL (0.2-1.0)
[2023-07-30 08:06] LABS: INR 2.59 (0.83-1.09); PROTHROMBIN TIME (PATIENT) 29.8 SEC (9.7-13.0)
[2023-07-30 08:09] LABS: ACTIVATED PTT 43.5 SECONDS (25.2-36.5)
[2023-07-30] MEDS ORDERED: hydrALAZINE HCL 25 MG TABLET (FP) PO PRN (10:01)
[2023-07-30 14:36] VITALS: BP 176/66; PULSE 78; RESP 20
[2023-07-30] MEDS ORDERED: amLODIPine BESYLATE 5 MG TABLET (FP) PO ONE (15:12)
[2023-07-30] MEDS ORDERED: ATORVASTATIN CA 80 MG TABLET (FP) PO SCH (22:00)
[2023-07-31] MEDS ORDERED: LEVOTHYROXINE NA 50 MCG TABLET (FP) PO SCH (06:00)
[2023-07-31] MEDS ORDERED: amLODIPine BESYLATE 5 MG TABLET (FP) PO SCH (10:00)
[2023-07-31] MEDS ORDERED: CITALOPRAM HYDROBROMIDE 20 MG TABLET PO SCH (10:00)
[2023-07-31] MEDS ORDERED: DIGOXIN 0.125 MG TABLET PO SCH (10:00)
[2023-07-31] MEDS ORDERED: metoPROLOL SUCCINATE 25 MG TAB.SR.24H (FP) PO SCH (10:00)
== END 2023-07-30 15:59 | disposition home or self-care (01) ==
LOC: JER 05:18 → JERBED 08:11
PROVIDERS: ADMIT Family Medicine; ATTEND Family Medicine
DX: R55 Syncope and collapse (principal); R29.6 Repeated falls; I10 Essential (primary) hypertension; I48.0 Paroxysmal atrial fibrillation; E78.5 Hyperlipidemia, unspecified; E03.9 Hypothyroidism, unspecified; I69.351 Hemiplegia and hemiparesis following cerebral infarction affecting right dominant side; Z79.01 Long term (current) use of anticoagulants; Z91.81 History of falling
CPT/HCPCS: 36415; 70450-TC; 70486-TC; 71045-TC-FY; 72125-TC; 73090-TC-LT-FY; 73110-TC-LT-FY; 73130-TC-LT-FY; 80053; 80162; 81003; 83735; 84443; 84484; 85025; 85610; 85730; 86850; 86900; 86901; 87086; 90715; 93005; 93010; 99285-25; G0378